=== PATIENT | female | born 1990 | race Caucasian/White ===

== ENCOUNTER 2018-10-27 13:42 | Emergency (ER) | payer OTHER ==
[2018-10-27] MEDS ORDERED: Sodium Chloride 0.9% 1,000 ML IV ONE (14:13)
[2018-10-27 14:25] VITALS: O2SAT 100
[2018-10-27 14:55] LABS: BASO % 0.1 % (0.0-2.0); EOS # 0.8 K/uL (0.0-0.7); EOS % 4.9 % (0.0-4.0); HEMOGLOBIN 14.7 g/dL (11.0-16.0); LYMPH # 2.4 K/uL (1.0-4.3); LYMPH % 14.4 % (20.0-40.0); MEAN CORPUSCULAR HEMOGLOBIN 30.4 pg (27.0-31.0); MEAN CORPUSCULAR HGB CONC 33.8 g/dL (33.0-37.0); MEAN PLATELET VOLUME 9.8 fL (7.2-11.7); MONO # 1.2 K/uL (0.0-0.8); MONO % 7.3 % (0.0-10.0); NEUT # 12.2 K/uL (1.8-7.0); NEUT % 73.3 % (50.0-75.0); RBC 4.84 Mil/uL (3.80-5.20); RED CELL DISTRIBUTION WIDTH 13.1 % (11.5-14.5); WHITE BLOOD COUNT 16.6 K/uL (4.8-10.8)
[2018-10-27 14:57] LABS: HCG,QUALITATIVE URINE POSITIVE (NEGATIVE)
[2018-10-27 15:02] LABS: SQUAMOUS EPITHIAL 10 /hpf (0-5); URINE AMORPHOUS SEDIMENT RARE /ul (<OCC); URINE BACTERIA RARE (<OCC); URINE BILIRUBIN NEGATIVE (NEGATIVE); URINE BLOOD TRACE (NEGATIVE); URINE CALCIUM OXALATE CRYSTALS FEW /hpf (<OCC); URINE CLARITY Hazy (Clear); URINE COLOR Yellow (YELLOW); URINE GLUCOSE (UA) NORMAL (Normal); URINE LEUKOCYTE ESTERASE 1+ Leu/uL (Negative); URINE PROTEIN NEGATIVE (NEGATIVE)
[2018-10-27 15:15] LABS: ALB/GLOB RATIO 1.5 (1.0-2.1); ALBUMIN 4.6 g/dL (3.5-5.0); ALT/SGPT 36 U/L (9-52); AST/SGOT 25 U/L (14-36); BLOOD UREA NITROGEN 8 mg/dL (7-17); CALCIUM 9.7 mg/dl (8.6-10.4); GFR NON-AFRICAN AMERICAN > 60
[2018-10-27] MEDS ORDERED: Dextrose 5%/0.45% NS 1,000 ML IV SCH (15:45)
[2018-10-27] MEDS ORDERED: Dextrose 5%/0.45% NS 1,000 ML IV ONE (16:03)
--- NOTE | 2018-10-27 17:13 | C.PDOC ---
History Of Present Illness 27-year-old female, who is 6+ weeks , presents to the ED for evaluation of abdominal cramping. Patient reports epigastric abdominal pain associated with nausea and episodes of vomiting. Patient states she follows with PHYSICIAN/OPHTHALMOLOGIST doctor Sunny and states that she has already undergone an ultrasound with her. Patient denies vaginal bleeding, headache, fever, chills, and dysuria at this time. Time Seen by Provider: 10/27/18 14:12 Chief Complaint (Nursing): GI Problem History Per: Patient History/Exam Limitations: no limitations Current Symptoms Are (Timing): Still Present Quality Of Discomfort: "Pain" Associated Symptoms: Nausea, Vomiting Past Medical History Reviewed: Historical Data, Nursing Documentation, Vital Signs Vital Signs: Last Vital Signs Temp 98.5 F 10/27/18 14:08 Pulse 91 H 10/27/18 14:08 Resp 16 10/27/18 14:08 BP 117/80 10/27/18 14:08 Pulse Ox 100 10/27/18 14:08 - Medical History PMH: No Chronic Diseases Surgical History: No Surg Hx Family History: States: Unknown Family Hx - Social History Hx Alcohol Use: No Hx Substance Use: No Review Of Systems Constitutional: Negative for: Fever, Chills Gastrointestinal: Positive for: Nausea, Vomiting, Abdominal Pain (epigastric ) Genitourinary: Negative for: Vaginal Bleeding Neurological: Negative for: Headache Physical Exam - Physical Exam Appears: Non-toxic, No Acute Distress, Other (slightly ill-appearing ) Skin: Normal Color, Warm, Dry Head: Atraumatic, Normacephalic Eye(s): bilateral: Normal Inspection Oral Mucosa: Dry (slight) Neck: Supple Chest: Symmetrical, No Deformity, No Tenderness Cardiovascular: Rhythm Regular, No Murmur Respiratory: Normal Breath Sounds, No Rales, No Rhonchi, No Wheezing Gastrointestinal/Abdominal: Soft, No Tenderness, No Guarding, No Rebound Pelvic: Other (mild pelvic discomfort ) Extremity: Normal ROM, Capillary Refill (less than 2 seconds ) Neurological/Psych: Oriented x3, Normal Speech, Normal Cognition ED Course And Treatment - Laboratory Results Result Diagrams: 10/27/18 14:51 10/27/18 14:51 Lab Results: Total Bilirubin 1.1 mg/dL (0.2-1.3) 10/27/18 14:51 AST 25 U/L (14-36) 10/27/18 14:51 ALT 36 U/L (9-52) 10/27/18 14:51 Alkaline Phosphatase 61 U/L (38-126) 10/27/18 14:51 Total Protein 7.7 g/dL (6.3-8.3) 10/27/18 14:51 Albumin 4.6 g/dL (3.5-5.0) 10/27/18 14:51 Globulin 3.0 gm/dL (2.2-3.9) 10/27/18 14:51 Albumin/Globulin Ratio 1.5 (1.0-2.1) 10/27/18 14:51 Urine Color Yellow (YELLOW) 10/27/18 14:51 Urine Clarity Hazy (Clear) 10/27/18 14:51 Urine pH 6.0 (5.0-8.0) 10/27/18 14:51 Ur Specific [place] 1.018 (1.003-1.030) 10/27/18 14:51 Urine Protein Negative mg/dL (NEGATIVE) 10/27/18 14:51 Urine Glucose (UA) Normal mg/dL (Normal) 10/27/18 14:51 Urine Ketones 2+ mg/dL (NEGATIVE) H 10/27/18 14:51 Urine Blood Trace (NEGATIVE) 10/27/18 14:51 Urine Nitrate Negative (NEGATIVE) 10/27/18 14:51 Urine Bilirubin Negative (NEGATIVE) 10/27/18 14:51 Urine Urobilinogen 4.0 mg/dL (0.2-1.0) H 10/27/18 14:51 Ur Leukocyte Esterase 1+ Ever/uL (Negative) H 10/27/18 14:51 Urine WBC (Auto) 8 /hpf (0-5) H 10/27/18 14:51 Urine RBC (Auto) 12 /hpf (0-3) H 10/27/18 14:51 Ur Squamous Epith Cells 10 /hpf (0-5) H 10/27/18 14:51 Calcium Oxalate Crystal Few /hpf (<OCC) H 10/27/18 14:51 Amorphous Sediment Rare /ul (<OCC) H 10/27/18 14:51 Urine Bacteria Rare (<OCC) 10/27/18 14:51 Urine HCG, Qual Positive (NEGATIVE) 10/27/18 14:51 Beta HCG, Quant 94769.00 mIU/ML 10/27/18 14:51 Urine HCG, Qual Positive (NEGATIVE) 10/27/18 14:51 O2 Sat by Pulse Oximetry: 100 (on RA ) Pulse Ox Interpretation: Normal Medical Decision Making Medical Decision Making: Progress: Bloodwork and UA ordered and reviewed. Dextrose IV and IV Fluids given. Case discussed withDr. Correa, who recommends zofran. Zofran IV given. On reassessment, patient is resting comfortably, showing no signs of distress and is tolerating PO barb sandra. Patient is stable for discharge. She is advised to follow up with Dr. Correa within 1-2 days for further evaluation. Disposition - Disposition Referrals: Lukas Correa MD [Staff Provider] - Disposition: HOME/ ROUTINE Disposition Time: 17:13 Condition: STABLE Prescriptions: Ondansetron ODT [Zofran ODT] 4 mg PO TID PRN #24 odt PRN Reason: Nausea/Vomiting Instructions: Hyperemesis Gravidarum Forms: General Discharge Instructions, [facility] (Maltese) - Clinical Impression Clinical Impression: Hyperemesis gravidarum - Scribe Statement The provider has reviewed the documentation as recorded by the Scribe (Mayra Shannon) Provider Attestation: All medical record entries made by the Scribe were at my direction and personally dictated by me. I have reviewed the chart and agree that the record accurately reflects my personal performance of the history, physical exam, medical decision making, and the department course for this patient. I have also personally directed, reviewed, and agree with the discharge instructions and disposition.
--- NOTE | 2018-10-27 17:17 | C.PDOC ---
Time Seen by Provider: 10/27/18 14:12 Chief Complaint (Nursing): GI Problem Past Medical History Vital Signs: Last Vital Signs Temp 98.5 F 10/27/18 14:08 Pulse 91 H 10/27/18 14:08 Resp 16 10/27/18 14:08 BP 117/80 10/27/18 14:08 Pulse Ox 100 10/27/18 14:08 - Social History Hx Alcohol Use: No Hx Substance Use: No ED Course And Treatment - Laboratory Results Result Diagrams: 10/27/18 14:51 10/27/18 14:51 Lab Results: Total Bilirubin 1.1 mg/dL (0.2-1.3) 10/27/18 14:51 AST 25 U/L (14-36) 10/27/18 14:51 ALT 36 U/L (9-52) 10/27/18 14:51 Alkaline Phosphatase 61 U/L (38-126) 10/27/18 14:51 Total Protein 7.7 g/dL (6.3-8.3) 10/27/18 14:51 Albumin 4.6 g/dL (3.5-5.0) 10/27/18 14:51 Globulin 3.0 gm/dL (2.2-3.9) 10/27/18 14:51 Albumin/Globulin Ratio 1.5 (1.0-2.1) 10/27/18 14:51 Urine Color Yellow (YELLOW) 10/27/18 14:51 Urine Clarity Hazy (Clear) 10/27/18 14:51 Urine pH 6.0 (5.0-8.0) 10/27/18 14:51 Ur Specific [place] 1.018 (1.003-1.030) 10/27/18 14:51 Urine Protein Negative mg/dL (NEGATIVE) 10/27/18 14:51 Urine Glucose (UA) Normal mg/dL (Normal) 10/27/18 14:51 Urine Ketones 2+ mg/dL (NEGATIVE) H 10/27/18 14:51 Urine Blood Trace (NEGATIVE) 10/27/18 14:51 Urine Nitrate Negative (NEGATIVE) 10/27/18 14:51 Urine Bilirubin Negative (NEGATIVE) 10/27/18 14:51 Urine Urobilinogen 4.0 mg/dL (0.2-1.0) H 10/27/18 14:51 Ur Leukocyte Esterase 1+ Ever/uL (Negative) H 10/27/18 14:51 Urine WBC (Auto) 8 /hpf (0-5) H 10/27/18 14:51 Urine RBC (Auto) 12 /hpf (0-3) H 10/27/18 14:51 Ur Squamous Epith Cells 10 /hpf (0-5) H 10/27/18 14:51 Calcium Oxalate Crystal Few /hpf (<OCC) H 10/27/18 14:51 Amorphous Sediment Rare /ul (<OCC) H 10/27/18 14:51 Urine Bacteria Rare (<OCC) 10/27/18 14:51 Urine HCG, Qual Positive (NEGATIVE) 10/27/18 14:51 Beta HCG, Quant 20684.00 mIU/ML 10/27/18 14:51 Urine HCG, Qual Positive (NEGATIVE) 10/27/18 14:51 O2 Sat by Pulse Oximetry: 100 Disposition - Disposition Referrals: Lukas Correa MD [Staff Provider] - Disposition: HOME/ ROUTINE Disposition Time: 17:13 Condition: STABLE Prescriptions: Ondansetron ODT [Zofran ODT] 4 mg PO TID PRN #24 odt PRN Reason: Nausea/Vomiting Instructions: Hyperemesis Gravidarum Forms: [facility] (Yi), General Discharge Instructions - POA Present On Arrival: None - Clinical Impression Clinical Impression: Hyperemesis gravidarum
[2018-10-27 17:21] VITALS: BP 102/67; PULSE 82; RESP 20; TEMP 97.8
== END 2018-10-27 17:37 | disposition home or self-care (01) ==
LOC: C.ER 13:42
DX: O21.0 Mild hyperemesis gravidarum (principal); Z3A.01 Less than 8 weeks gestation of pregnancy
CPT/HCPCS: 80053; 81001; 84702; 84703; 85025; 96361; 96374; 99285; J2405; J7030; J7042

== ENCOUNTER 2018-10-27 21:06 | Observation (INO) | payer OTHER ==
[2018-10-27] MEDS ORDERED: Sodium Chloride 0.9% 1,000 ML IV ONE (22:07)
--- NOTE | 2018-10-27 22:31 | C.PDOC ---
History Of Present Illness 27 year old female returns to the emergency department after being evaluated earlier today for similar symptoms of hyperemesis gravidarum (G1, P0). During previous ED visit patient was treated with Zofran and IV Fluids, improving her condition and allowing her to tolerate PO fluids. Patient states that she went home and ate rice with shah, and took the Zofran ODT that she was prescribed but was still voiting and having the same crampy abdominal pain. Patient denies vaginal bleeding, fever, chills, or urinary complaints. Time Seen by Provider: 10/27/18 21:49 Chief Complaint (Nursing): Abdominal Pain History Per: Patient History/Exam Limitations: no limitations Onset/Duration Of Symptoms: Hrs Current Symptoms Are (Timing): Still Present Location Of Pain/Discomfort: Other (abdomen) Radiation Of Pain To:: None Quality Of Discomfort: Cramping, "Pain" Associated Symptoms: Vomiting. denies: Fever, Chills, Nausea, Urinary Symptoms : 1 Para: 0 Past Medical History Reviewed: Historical Data, Nursing Documentation, Vital Signs Vital Signs: Last Vital Signs Temp 98.4 F 10/27/18 21:31 Pulse 92 H 10/27/18 21:31 Resp 20 10/27/18 21:31 BP 117/78 10/27/18 21:31 Pulse Ox 98 10/27/18 21:31 - Medical History PMH: No Chronic Diseases Surgical History: No Surg Hx Family History: States: No Known Family Hx - Social History Hx Alcohol Use: No Hx Substance Use: No Review Of Systems Except As Marked, All Systems Reviewed And Found Negative. Constitutional: Negative for: Fever, Chills Cardiovascular: Negative for: Chest Pain Respiratory: Negative for: Cough, Shortness of Breath Gastrointestinal: Positive for: Vomiting, Abdominal Pain. Negative for: Nausea, Diarrhea Genitourinary: Negative for: Dysuria, Frequency, Incontinence Physical Exam - Physical Exam Appears: Non-toxic, No Acute Distress Skin: Normal Color, Warm, Dry Head: Atraumatic, Normacephalic Eye(s): bilateral: Normal Inspection, PERRL, EOMI Nose: Normal Oral Mucosa: Dry Neck: Normal, Supple Chest: Symmetrical, No Tenderness Cardiovascular: Rhythm Regular (tachycardic), No Murmur Respiratory: Normal Breath Sounds, No Rales, No Rhonchi, No Wheezing Gastrointestinal/Abdominal: Bowel Sounds (normal), Soft, Tenderness (diffuse) Back: Normal Inspection, No CVA Tenderness Extremity: Normal ROM Neurological/Psych: Oriented x3, Normal Speech, Normal Cognition ED Course And Treatment - Laboratory Results Result Diagrams: 10/27/18 22:54 10/27/18 22:54 O2 Sat by Pulse Oximetry: 98 (RA) Pulse Ox Interpretation: Normal Medical Decision Making Medical Decision Making: Plan: CMP Lipase CBC NaCl IV Fluids Urinalysis 00:[address] Correa regarding the patient, she stated to admit to OB on- call. 00:15 spoke to OB on-call Dr. Gonzalez who stated that she will admit and put in orders under Dr. Correa, as the patient is a private patient of Dr. Correa's. Disposition - Disposition Forms: [facility] (Frisian) - Scribe Statement The provider has reviewed the documentation as recorded by the Scribe (Kieran Wu) Provider Attestation: All medical record entries made by the Scribe were at my direction and personally dictated by me. I have reviewed the chart and agree that the record accurately reflects my personal performance of the history, physical exam, medical decision making, and the department course for this patient. I have also personally directed, reviewed, and agree with the discharge instructions and disposition.
[2018-10-27 23:00] LABS: BASO # 0.2 K/uL (0.0-0.2); BASO % 1.4 % (0.0-2.0); EOS # 0.9 K/uL (0.0-0.7); EOS % 5.7 % (0.0-4.0); HEMOGLOBIN 13.4 g/dL (11.0-16.0); LYMPH % 12.7 % (20.0-40.0); MEAN CELL VOLUME 90.8 fL (81.0-99.0); MEAN CORPUSCULAR HEMOGLOBIN 30.4 pg (27.0-31.0); MEAN CORPUSCULAR HGB CONC 33.5 g/dL (33.0-37.0); MEAN PLATELET VOLUME 10.2 fL (7.2-11.7); MONO # 1.3 K/uL (0.0-0.8); MONO % 8.2 % (0.0-10.0); NEUT # 11.4 K/uL (1.8-7.0); RBC 4.42 Mil/uL (3.80-5.20); RED CELL DISTRIBUTION WIDTH 13.4 % (11.5-14.5); WHITE BLOOD COUNT 15.9 K/uL (4.8-10.8)
[2018-10-27 23:22] LABS: ALB/GLOB RATIO 1.5 (1.0-2.1); ALT/SGPT 31 U/L (9-52); AST/SGOT 18 U/L (14-36); BLOOD UREA NITROGEN 5 mg/dL (7-17); CALCIUM 8.9 mg/dl (8.6-10.4); GFR NON-AFRICAN AMERICAN > 60; LIPASE 160 U/L (23-300)
[2018-10-27 23:55] LABS: SQUAMOUS EPITHIAL 18 /hpf (0-5); URINE BACTERIA OCC (<OCC); URINE BILIRUBIN NEGATIVE (NEGATIVE); URINE BLOOD NEGATIVE (NEGATIVE); URINE CLARITY Hazy (Clear); URINE COLOR Yellow (YELLOW); URINE GLUCOSE (UA) NORMAL (Normal); URINE LEUKOCYTE ESTERASE 2+ Leu/uL (Negative); URINE PROTEIN NEGATIVE (NEGATIVE)
[2018-10-28] MEDS ORDERED: Dextrose 5%/Lactated Ringer's 1,000 ML IV SCH (01:15)
[2018-10-28] MEDS ORDERED: Lactated Ringer's 1,000 ML IV SCH (03:45)
[2018-10-28 07:34] LABS: BASO % 0.3 % (0.0-2.0); EOS % 7.8 % (0.0-4.0); HEMOGLOBIN 12.8 g/dL (11.0-16.0); LYMPH # 3.1 K/uL (1.0-4.3); LYMPH % 24.8 % (20.0-40.0); MEAN CELL VOLUME 90.1 fL (81.0-99.0); MEAN CORPUSCULAR HEMOGLOBIN 30.6 pg (27.0-31.0); MEAN PLATELET VOLUME 9.8 fL (7.2-11.7); MONO % 7.9 % (0.0-10.0); NEUT # 7.4 K/uL (1.8-7.0); NEUT % 59.2 % (50.0-75.0); NRBC % 0.1 % (0.0-2.0); RBC 4.18 Mil/uL (3.80-5.20); RED CELL DISTRIBUTION WIDTH 13.2 % (11.5-14.5); WHITE BLOOD COUNT 12.5 K/uL (4.8-10.8)
[2018-10-28 08:31] LABS: ALB/GLOB RATIO 1.4 (1.0-2.1); ALBUMIN 3.4 g/dL (3.5-5.0); ALT/SGPT 22 U/L (9-52); AMYLASE 38 U/L (30-110); AST/SGOT 15 U/L (14-36); BILIRUBIN,DIRECT 0.1 mg/dL (0.0-0.4); BLOOD UREA NITROGEN 3 mg/dL (7-17); CALCIUM 8.5 mg/dl (8.6-10.4); GFR NON-AFRICAN AMERICAN > 60; LIPASE 66 U/L (23-300)
--- NOTE | 2018-10-28 15:47 | CP.PCM.CON ---
Past Patient History - Past Medical History & Family History Past Medical History?: No - Past Social History Smoking Status: Never Smoked - MUSCULOSKELETAL/RHEUMATOLOGICAL Hx Falls: No - PSYCHIATRIC Hx Substance Use: No - SURGICAL HISTORY Hx Surgeries: No - ANESTHESIA Hx Anesthesia: No Meds Allergies/Adverse Reactions: Allergies Allergy/AdvReac Type Severity Reaction Status Date / Time No Known Allergies Allergy Verified 10/28/18 02:27 - Medications Medications: Current Medications Dextrose/Lactated Ringer's (Dextrose 5%/Lactated Ringer's) 1,000 mls @ 40 mls/hr IV .Q24H [facility] Last Admin: 10/28/18 02:18 Dose: 40 mls/hr Lactated Ringer's (Lactated Ringer's) 1,000 mls @ 125 mls/hr IV .Q8H [facility] Metoclopramide HCl (Reglan) 10 mg IVP BID [facility] Last Admin: 10/28/18 09:25 Dose: 10 mg Ondansetron HCl (Zofran Inj) 4 mg IVP Q6 PRN PRN Reason: Nausea/Vomiting Results - Vital Signs Recent Vital Signs: Last Vital Signs Temp 98.5 F 10/28/18 08:00 Pulse 75 10/28/18 08:00 Resp 18 10/28/18 08:00 BP 109/75 10/28/18 08:00 Pulse Ox 100 10/28/18 08:00 - Labs Result Diagrams: 10/28/18 07:22 10/28/18 07:22 Labs: Laboratory Results - last 24 hr 10/27/18 10/27/18 10/27/18 22:54 22:54 23:41 WBC 15.9 H RBC 4.42 Hgb 13.4 Hct 40.2 MCV 90.8 MCH 30.4 MCHC 33.5 RDW 13.4 Plt Count 251 MPV 10.2 Neut % (Auto) 72.0 Lymph % (Auto) 12.[address] [place] % (Auto) 8.2 Eos % (Auto) 5.7 H Baso % (Auto) 1.4 Neut # (Auto) 11.4 H Lymph # (Auto) 2.0 [place] # (Auto) 1.3 H Eos # (Auto) 0.9 H Baso # (Auto) 0.2 Sodium 135 Potassium 3.5 L Chloride 101 Carbon Dioxide 26 Anion Gap 12 BUN 5 L Creatinine 0.5 L Est GFR ( Amer) > 60 Est GFR (Non-Af Amer) > 60 Random Glucose 78 Calcium 8.9 Total Bilirubin 1.0 Direct Bilirubin AST 18 ALT 31 Alkaline Phosphatase 56 Total Protein 6.6 Albumin 4.0 Globulin 2.6 Albumin/Globulin Ratio 1.5 Amylase Lipase 160 Beta HCG, Quant Urine Color Yellow Urine Clarity Hazy Urine pH 7.0 Ur Specific [place] 1.005 Urine Protein Negative Urine Glucose (UA) Normal Urine Ketones 1+ H Urine Blood Negative Urine Nitrate Negative Urine Bilirubin Negative Urine Urobilinogen 2.0 H Ur Leukocyte Esterase 2+ H Urine WBC (Auto) 10 H Urine RBC (Auto) 2 Ur Squamous Epith Cells 18 H Urine Bacteria Occ H 10/28/18 10/28/18 10/28/18 07:22 07:22 14:00 WBC 12.5 H RBC 4.18 Hgb 12.8 Hct 37.6 MCV 90.1 MCH 30.6 MCHC 34.0 RDW 13.2 Plt Count 236 MPV 9.8 Neut % (Auto) 59.2 Lymph % (Auto) 24.8 [place] % (Auto) 7.9 Eos % (Auto) 7.8 H Baso % (Auto) 0.3 Neut # (Auto) 7.4 H Lymph # (Auto) 3.1 [place] # (Auto) 1.0 H Eos # (Auto) 1.0 H Baso # (Auto) 0.0 Sodium 134 Potassium 3.2 L Chloride 103 Carbon Dioxide 27 Anion Gap 8 L BUN 3 L Creatinine 0.5 L Est GFR ( Amer) > 60 Est GFR (Non-Af Amer) > 60 Random Glucose 108 H D Calcium 8.5 L Total Bilirubin 1.2 Direct Bilirubin 0.1 AST 15 ALT 22 Alkaline Phosphatase 49 Total Protein 5.7 L Albumin 3.4 L Globulin 2.3 Albumin/Globulin Ratio 1.4 Amylase 38 Lipase 66 Beta HCG, Quant 58405.00 Urine Color Urine Clarity Urine pH Ur Specific [place] Urine Protein Urine Glucose (UA) Urine Ketones Urine Blood Urine Nitrate Urine Bilirubin Urine Urobilinogen Ur Leukocyte Esterase Urine WBC (Auto) Urine RBC (Auto) Ur Squamous Epith Cells Urine Bacteria
--- NOTE | 2018-10-28 15:51 | CP.PCM.HP ---
History of Present Illness - History of Present Illness History of Present Illness: Pt presented in the ER in the early hours of the morning of 10/27 with c/o of intractable N&V and stated that she was about 6 weeks . Apparently she received IV Hydration, Zofran, Reglan and was discharge home with instructions and Rx. Pt returned to ER at about 6-7 PM on the same day and this time with intractable abdominal, epigastric and back pain which is gotten worse since. N&V was controlled with the medications. She is a private patient of Dr. Correa so she was contacted and requested the patient to be admitted to her service and to have the [facility] Hospitalist to see the patient and admit her. Dr. Car contacted me re this patient and I stated the same, please admit the patient to Dr. Correa and have the nurses call me for orders. Dr. Correa was called a couple of times at home and she gave orders last PM and I saw the patient this AM. Pt states now that her N&V is controlled on present meds, Zofran and Reglan but what really bothers her now is her abdominal, back and epigastric pain. Upon further questioning she states that for many years she had suffered from increase "stomach acidity" and felt that since her mother suffers from the same issue, did not see a doctor about it so never seek medical care for it. Pt is a 27 yo female with an LMP of 09/05/17 and apparently about 7.4 weeks , although she states that she is about 6 weeks . No OB related complaints except for Hyperemesis. Present on Admission - Present on Admission Any Indicators Present on Admission: No History of DVT/PE: No History of Uncontrolled Diabetes: No Urinary Catheter: No Decubitus Ulcer Present: No History Surgical Site Infection Following: None Review of Systems - Review of Systems All systems: reviewed and no additional remarkable complaints except - Constitutional Constitutional: As Per HPI - EENT Eyes: As Per HPI Ears: As Per HPI Nose/Mouth/Throat: As Per HPI - Breasts Breasts: As Per HPI - Cardiovascular Cardiovascular: As Per HPI - Respiratory Respiratory: As Per HPI - Gastrointestinal Gastrointestinal: Abdominal Pain, Bloating, Heartburn, Nausea - Genitourinary Genitourinary: As Per HPI - Reproductive: Female Reproductive:Female: Amenorrhea, Cycle Variable (LMP 09/05/2018 and states that she is about 6 weeks ), Menses 1-7 Days - Musculoskeletal Musculoskeletal: As Per HPI - Integumentary Integumentary: As Per HPI - Neurological Neurological: As Per HPI - Psychiatric Psychiatric: As Per HPI - Endocrine Endocrine: As Per HPI - Hematologic/Lymphatic Hematologic: As Per HPI Past Patient History - Past Medical History & Family History Past Medical History?: Yes Past Family History: Reviewed and not pertinent - Past Social History Smoking Status: Never Smoked (s stated on HPI only) Chewing Tobacco Use: No Cigar Use: No Alcohol: None Drugs: Denies Home Situation {Lives}: Other Domestic Violence: Negative - MUSCULOSKELETAL/RHEUMATOLOGICAL Hx Falls: No - PSYCHIATRIC Hx Substance Use: No - SURGICAL HISTORY Hx Surgeries: No - ANESTHESIA Hx Anesthesia: No Meds Allergies/Adverse Reactions: Allergies Allergy/AdvReac Type Severity Reaction Status Date / Time No Known Allergies Allergy Verified 10/28/18 02:27 Physical Exam - Constitutional Appears: In Acute Distress - Head Exam Head Exam: NORMAL INSPECTION - ENT Exam ENT Exam: Mucous Membranes Moist - Respiratory Exam Respiratory Exam: NORMAL BREATHING PATTERN - Cardiovascular Exam Cardiovascular Exam: REGULAR RHYTHM - GI/Abdominal Exam GI & Abdominal Exam: Distended, Normal Bowel Sounds, Tenderness - Rectal Exam Rectal Exam: NORMAL INSPECTION - Exam External exam: NORMAL EXTERNAL EXAM - Extremities Exam Extremities exam: Positive for: normal inspection - Back Exam Back exam: NORMAL INSPECTION, paraspinal tenderness - Neurological Exam Neurological exam: Alert, Altered, Oriented x3 - Psychiatric Exam Psychiatric exam: Normal Affect Results - Vital Signs Recent Vital Signs: Last Vital Signs Temp 98.5 F 10/28/18 08:00 Pulse 75 10/28/18 08:00 Resp 18 10/28/18 08:00 BP 109/75 10/28/18 08:00 Pulse Ox 100 10/28/18 08:00 - Labs Result Diagrams: 10/28/18 07:22 10/28/18 07:22 Labs: Laboratory Results - last 24 hr 10/27/18 10/27/18 10/27/18 22:54 22:54 23:41 WBC 15.9 H RBC 4.42 Hgb 13.4 Hct 40.2 MCV 90.8 MCH 30.4 MCHC 33.5 RDW 13.4 Plt Count 251 MPV 10.2 Neut % (Auto) 72.0 Lymph % (Auto) 12.7 L [place] % (Auto) 8.2 Eos % (Auto) 5.7 H Baso % (Auto) 1.4 Neut # (Auto) 11.4 H Lymph # (Auto) 2.0 [place] # (Auto) 1.3 H Eos # (Auto) 0.9 H Baso # (Auto) 0.2 Sodium 135 Potassium 3.5 L Chloride 101 Carbon Dioxide 26 Anion Gap 12 BUN 5 L Creatinine 0.5 L Est GFR ( Amer) > 60 Est GFR (Non-Af Amer) > 60 Random Glucose 78 Calcium 8.9 Total Bilirubin 1.0 Direct Bilirubin AST 18 ALT 31 Alkaline Phosphatase 56 Total Protein 6.6 Albumin 4.0 Globulin 2.6 Albumin/Globulin Ratio 1.5 Amylase Lipase 160 Beta HCG, Quant Urine Color Yellow Urine Clarity Hazy Urine pH 7.0 Ur Specific [place] 1.005 Urine Protein Negative Urine Glucose (UA) Normal Urine Ketones 1+ H Urine Blood Negative Urine Nitrate Negative Urine Bilirubin Negative Urine Urobilinogen 2.0 H Ur Leukocyte Esterase 2+ H Urine WBC (Auto) 10 H Urine RBC (Auto) 2 Ur Squamous Epith Cells 18 H Urine Bacteria Occ H 10/28/18 10/28/18 10/28/18 07:22 07:22 14:00 WBC 12.5 H RBC 4.18 Hgb 12.8 Hct 37.6 MCV 90.1 MCH 30.6 MCHC 34.0 RDW 13.2 Plt Count 236 MPV 9.8 Neut % (Auto) 59.2 Lymph % (Auto) 24.8 [place] % (Auto) 7.9 Eos % (Auto) 7.8 H Baso % (Auto) 0.3 Neut # (Auto) 7.4 H Lymph # (Auto) 3.1 [place] # (Auto) 1.0 H Eos # (Auto) 1.0 H Baso # (Auto) 0.0 Sodium 134 Potassium 3.2 L Chloride 103 Carbon Dioxide 27 Anion Gap 8 L BUN 3 L Creatinine 0.5 L Est GFR ( Amer) > 60 Est GFR (Non-Af Amer) > 60 Random Glucose 108 H D Calcium 8.5 L Total Bilirubin 1.2 Direct Bilirubin 0.1 AST 15 ALT 22 Alkaline Phosphatase 49 Total Protein 5.7 L Albumin 3.4 L Globulin 2.3 Albumin/Globulin Ratio 1.4 Amylase 38 Lipase 66 Beta HCG, Quant 31279.00 Urine Color Urine Clarity Urine pH Ur Specific [place] Urine Protein Urine Glucose (UA) Urine Ketones Urine Blood Urine Nitrate Urine Bilirubin Urine Urobilinogen Ur Leukocyte Esterase Urine WBC (Auto) Urine RBC (Auto) Ur Squamous Epith Cells Urine Bacteria Assessment & Plan - Assessment and Plan (Free Text) Assessment: Assesment and Plan 27 yo female with IUP at about 7.3 weeks per LMP Hyperemesis, controlled with medications and tolerated clear liquids well Severe abdominal, epigastric and back pain Hx of increase gas and acidity ie, Gastritis? Discussed with Dr. Correa and recommended 1. Abdominal and pelvic US 2. Verify and GA/ Quantitative BHCG ordered 3. Consult GI and / Cassandra python django developer and consulted 4. Continue present medications - Date & Time Date: 10/28/18 Time: 16:12
--- NOTE | 2018-10-28 17:21 | US ---
Date of service: 10/28/2018 HISTORY: Severe Epigastric and Abdominal pain COMPARISON: None. TECHNIQUE: Sonographic evaluation of the right upper quadrant of the abdomen. FINDINGS: LIVER: Measures 11.0 cm in length. Normal echogenicity of the liver parenchyma. No mass. No intrahepatic bile duct dilatation. GALLBLADDER: Cholelithiasis and sludge. No mural thickening. No pericholecystic fluid. Negative sonographic Bueno sign. COMMON BILE DUCT: Measures 9 mm. This is abnormally dilated. There is no evidence of choledocholithiasis. PANCREAS: Unremarkable as visualized. No mass. No ductal dilatation. RIGHT KIDNEY: Measures 9.0 cm in length. Normal echogenicity. No calculus, mass, or hydronephrosis. AORTA: Unremarkable IVC: Unremarkable. OTHER FINDINGS: None . IMPRESSION: Cholelithiasis. No evidence of cholecystitis. Mildly dilated common bile duct of uncertain etiology. No additional abnormality peer
--- NOTE | 2018-10-28 17:23 | US ---
Date of service: 10/28/2018 PROCEDURE: OB Pelvic Ultrasound HISTORY: Verify 6 weeks IUP 09/05/2018 COMPARISON: None available. FINDINGS: UTERUS: Gestational sac: Gestational sac diameter 12 mm equivalent to 5 weeks 2 days. [place]-rump length 4 mm equivalent to 6 weeks 0 days Heart rate: 115 bpm. age (Ultrasound estimated): 5 weeks 5 days [place]-gestational hemorrhage: None. Date of delivery (Ultrasound estimated) : 06/25/2019 Uterus measures 9.7 x 5.1 x 5.7 cm. Normal in size and appearance. CERVIX: Measures 3.2 cm. Long and closed. No cervical abnormality seen. RIGHT OVARY: Measures 3.3 x 3.0 x 2.9 cm. No mass lesion. Normal flow. Simple physiologic cyst, 1.7 x 2.1 x 2.1 cm. LEFT OVARY: Measures 3.0 x 2.1 x 2.6 cm. No solid mass. Normal flow. FREE FLUID: None. OTHER FINDINGS: None. IMPRESSION: Single live intrauterine gestation of approximately 5 weeks 5 days gestational age. heart rate 115. No subchorionic hemorrhage. Cervix closed.
--- NOTE | 2018-10-28 19:31 | CP.PCM.CON ---
History of Present Illness - History of Present Illness History of Present Illness: This is a 27 year old woman, LMP 09/05/17, with nausea, vomiting, abdominal pain. Patient states that she developed nausea, vomiting, and intermittent abdominal pain approximately 10 days ago. The pain is located in the upper abdomen in a band-like distribution, described as cramping, lasting 30 minutes at a time, and was initially mild. In the past three or four days, the pain has become more intense. The pain worsens after eating. She also complains of heartburn but has no difficulty swallowing. Her appetite is good, but she has lost 9 pounds in the past two weeks. She had not had a bowel movement in the three days prior to admission. She denies having rectal bleeding. Sonogram of the abdomen 10/28/28 showed cholelithiasis and sludge in the GB and a dilated common duct measuring 9 mm. The pelvic ultrasound shed a live intrauterine gestation approximately 5 weeks 5 days. Liver enzymes, amylase, lipase were all normal. Review of Systems - Review of Systems All systems: reviewed and no additional remarkable complaints except - Constitutional Constitutional: Weight Loss. absent: Chills, Fever - Cardiovascular Cardiovascular: absent: Chest Pain - Respiratory Respiratory: absent: Cough, Dyspnea - Gastrointestinal Gastrointestinal: Abdominal Pain, Constipation, Heartburn, Nausea, Vomiting. absent: Diarrhea, Dysphagia, Hematochezia - Genitourinary Genitourinary: absent: Dysuria, Urinary Incontinence, Urinary Frequency Past Patient History - Past Medical History & Family History Past Medical History?: Yes Past Family History: Reviewed and not pertinent - Past Social History Smoking Status: Never Smoked (s stated on HPI only) Chewing Tobacco Use: No Cigar Use: No Alcohol: None Drugs: Denies Home Situation {Lives}: Other Domestic Violence: Negative - MUSCULOSKELETAL/RHEUMATOLOGICAL Hx Falls: No - PSYCHIATRIC Hx Substance Use: No - SURGICAL HISTORY Hx Surgeries: No - ANESTHESIA Hx Anesthesia: No Meds Allergies/Adverse Reactions: Allergies Allergy/AdvReac Type Severity Reaction Status Date / Time No Known Allergies Allergy Verified 10/28/18 02:27 - Medications Medications: Current Medications Dextrose/Lactated Ringer's (Dextrose 5%/Lactated Ringer's) 1,000 mls @ 40 mls/hr IV .Q24H [facility] Last Admin: 10/28/18 02:18 Dose: 40 mls/hr Lactated Ringer's (Lactated Ringer's) 1,000 mls @ 125 mls/hr IV .Q8H [facility] Metoclopramide HCl (Reglan) 10 mg IVP BID [facility] Last Admin: 10/28/18 17:10 Dose: 10 mg Ondansetron HCl (Zofran Inj) 4 mg IVP Q6 PRN PRN Reason: Nausea/Vomiting Physical Exam - Constitutional Appears: No Acute Distress - Head Exam Head Exam: ATRAUMATIC, NORMOCEPHALIC - Neck Exam Neck exam: Negative for: Lymphadenopathy, Thyromegaly - Respiratory Exam Respiratory Exam: NORMAL BREATHING PATTERN. absent: Rales, Rhonchi, Wheezes - Cardiovascular Exam Cardiovascular Exam: REGULAR RHYTHM, +S1, +S2. absent: Gallop, Rubs, Systolic Murmur - GI/Abdominal Exam GI & Abdominal Exam: Normal Bowel Sounds, Soft. absent: Mass, Organomegaly, Tenderness - Rectal Exam Rectal Exam: Deferred - Extremities Exam Extremities exam: Negative for: calf tenderness, pedal edema Results - Vital Signs Recent Vital Signs: Last Vital Signs Temp 99.4 F 10/28/18 15:40 Pulse 85 10/28/18 15:40 Resp 18 10/28/18 15:40 BP 115/76 10/28/18 15:40 Pulse Ox 100 10/28/18 15:40 - Labs Result Diagrams: 10/28/18 07:22 10/28/18 07:22 Labs: Laboratory Results - last 24 hr 10/27/18 10/27/18 10/27/18 22:54 22:54 23:41 WBC 15.9 H RBC 4.42 Hgb 13.4 Hct 40.2 MCV 90.8 MCH 30.4 MCHC 33.5 RDW 13.4 Plt Count 251 MPV 10.2 Neut % (Auto) 72.0 Lymph % (Auto) 12.7 L [place] % (Auto) 8.2 Eos % (Auto) 5.7 H Baso % (Auto) 1.4 Neut # (Auto) 11.4 H Lymph # (Auto) 2.0 [place] # (Auto) 1.3 H Eos # (Auto) 0.9 H Baso # (Auto) 0.2 Sodium 135 Potassium 3.5 L Chloride 101 Carbon Dioxide 26 Anion Gap 12 BUN 5 L Creatinine 0.5 L Est GFR ( Amer) > 60 Est GFR (Non-Af Amer) > 60 Random Glucose 78 Calcium 8.9 Total Bilirubin 1.0 Direct Bilirubin AST 18 ALT 31 Alkaline Phosphatase 56 Total Protein 6.6 Albumin 4.0 Globulin 2.6 Albumin/Globulin Ratio 1.5 Amylase Lipase 160 Beta HCG, Quant Urine Color Yellow Urine Clarity Hazy Urine pH 7.0 Ur Specific [place] 1.005 Urine Protein Negative Urine Glucose (UA) Normal Urine Ketones 1+ H Urine Blood Negative Urine Nitrate Negative Urine Bilirubin Negative Urine Urobilinogen 2.0 H Ur Leukocyte Esterase 2+ H Urine WBC (Auto) 10 H Urine RBC (Auto) 2 Ur Squamous Epith Cells 18 H Urine Bacteria Occ H 10/28/18 10/28/18 10/28/18 07:22 07:22 14:00 WBC 12.5 H RBC 4.18 Hgb 12.8 Hct 37.6 MCV 90.1 MCH 30.6 MCHC 34.0 RDW 13.2 Plt Count 236 MPV 9.8 Neut % (Auto) 59.2 Lymph % (Auto) 24.8 [place] % (Auto) 7.9 Eos % (Auto) 7.8 H Baso % (Auto) 0.3 Neut # (Auto) 7.4 H Lymph # (Auto) 3.1 [place] # (Auto) 1.0 H Eos # (Auto) 1.0 H Baso # (Auto) 0.0 Sodium 134 Potassium 3.2 L Chloride 103 Carbon Dioxide 27 Anion Gap 8 L BUN 3 L Creatinine 0.5 L Est GFR ( Amer) > 60 Est GFR (Non-Af Amer) > 60 Random Glucose 108 H D Calcium 8.5 L Total Bilirubin 1.2 Direct Bilirubin 0.1 AST 15 ALT 22 Alkaline Phosphatase 49 Total Protein 5.7 L Albumin 3.4 L Globulin 2.3 Albumin/Globulin Ratio 1.4 Amylase 38 Lipase 66 Beta HCG, Quant 75440.00 Urine Color Urine Clarity Urine pH Ur Specific [place] Urine Protein Urine Glucose (UA) Urine Ketones Urine Blood Urine Nitrate Urine Bilirubin Urine Urobilinogen Ur Leukocyte Esterase Urine WBC (Auto) Urine RBC (Auto) Ur Squamous Epith Cells Urine Bacteria Assessment & Plan (1) Abdominal pain complicating , antepartum Assessment and Plan: Patient has upper abdominal pain for the past 10 days. Although the LFTs are normal, sonogram showed dilatation of the common duct to 9 mm as well as stones and sludge in the GB. Will follow liver enzymes and request surgery consultation. Status: Acute
--- NOTE | 2018-10-28 20:58 | CP.PCM.CON ---
History of Present Illness - History of Present Illness History of Present Illness: General Surgery Consult Note for Dr. Blake Reason for consult: cholelithiasis, Cbd 9 mm 27 F who is currently ~6 weeks verified by US presents to [facility] for complaint of abdominal pain and nausea/vomiting. Patient was seen and evaluated on the 4 tower. Patient states that pain has been intermittently present for about 2 weeks. She reports that pain has been getting progressively worse especially over the last day. Yesterday, patient states pain was unbearable and had episodes of nausea/vomiting with NBNB emesis. She rates pain as severe and describes it as constant, dull and cramping located in the epigastrium. Eating/drinking/movement aggravates symptoms while nothing specifically alleviates them. Denies recent illness or sick contacts. ABUS revealed cholelithiasis, Cbd 9 mm without evidence of choledolcholithiasis (see full report). GI was consulted, Dr. Trujillo. Patient denies fever/chills, cp, SOB, diarrhea, constipation, incontinence, urinary symptoms. PMH: denies PSH: denies ALL: NKDA Social: denies tobacco/EtOH/illicit drug use, LMP about 6 weeks ago Review of Systems - Review of Systems All systems: reviewed and no additional remarkable complaints except (as per HPI) Past Patient History - Past Medical History & Family History Past Medical History?: Yes Past Family History: Reviewed and not pertinent - Past Social History Smoking Status: Never Smoked (s stated on HPI only) Chewing Tobacco Use: No Cigar Use: No Alcohol: None Drugs: Denies Home Situation {Lives}: Other Domestic Violence: Negative - MUSCULOSKELETAL/RHEUMATOLOGICAL Hx Falls: No - PSYCHIATRIC Hx Substance Use: No - SURGICAL HISTORY Hx Surgeries: No - ANESTHESIA Hx Anesthesia: No Meds Allergies/Adverse Reactions: Allergies Allergy/AdvReac Type Severity Reaction Status Date / Time No Known Allergies Allergy Verified 10/28/18 02:27 - Medications Medications: Current Medications Dextrose/Lactated Ringer's (Dextrose 5%/Lactated Ringer's) 1,000 mls @ 40 mls/hr IV .Q24H [facility] Last Admin: 10/28/18 02:18 Dose: 40 mls/hr Lactated Ringer's (Lactated Ringer's) 1,000 mls @ 125 mls/hr IV .Q8H [facility] Metoclopramide HCl (Reglan) 10 mg IVP BID [facility] Last Admin: 10/28/18 17:10 Dose: 10 mg Ondansetron HCl (Zofran Inj) 4 mg IVP Q6 PRN PRN Reason: Nausea/Vomiting Physical Exam - Constitutional Appears: Non-toxic, No Acute Distress - Head Exam Head Exam: ATRAUMATIC, NORMOCEPHALIC - Eye Exam Eye Exam: EOMI, Normal appearance Pupil Exam: PERRL - ENT Exam ENT Exam: Mucous Membranes Moist - Neck Exam Neck exam: Positive for: Full Rom - Respiratory Exam Respiratory Exam: NORMAL BREATHING PATTERN - Cardiovascular Exam Cardiovascular Exam: REGULAR RHYTHM - GI/Abdominal Exam GI & Abdominal Exam: Normal Bowel Sounds, Soft, Tenderness (epigastrium/RUQ). absent: Distended, Firm, Guarding, Hernia, Rebound, Rigid - Extremities Exam Extremities exam: Positive for: normal capillary refill, pedal pulses present. Negative for: calf tenderness - Back Exam Back exam: absent: CVA tenderness (L), CVA tenderness (R) - Neurological Exam Neurological exam: Alert, CN II-XII Intact, Oriented x3 - Psychiatric Exam Psychiatric exam: Normal Affect, Normal Mood - Skin Skin Exam: Dry, Intact, Normal Color, Warm Results - Vital Signs Recent Vital Signs: Last Vital Signs Temp 99.4 F 10/28/18 15:40 Pulse 85 10/28/18 15:40 Resp 18 10/28/18 15:40 BP 115/76 10/28/18 15:40 Pulse Ox 100 10/28/18 15:40 - Labs Result Diagrams: 10/29/18 08:44 10/28/18 07:22 Labs: Laboratory Results - last 24 hr 10/27/18 10/27/18 10/27/18 22:54 22:54 23:41 WBC 15.9 H RBC 4.42 Hgb 13.4 Hct 40.2 MCV 90.8 MCH 30.4 MCHC 33.5 RDW 13.4 Plt Count 251 MPV 10.2 Neut % (Auto) 72.0 Lymph % (Auto) 12.7 L [place] % (Auto) 8.2 Eos % (Auto) 5.7 H Baso % (Auto) 1.4 Neut # (Auto) 11.4 H Lymph # (Auto) 2.0 [place] # (Auto) 1.3 H Eos # (Auto) 0.9 H Baso # (Auto) 0.2 Sodium 135 Potassium 3.5 L Chloride 101 Carbon Dioxide 26 Anion Gap 12 BUN 5 L Creatinine 0.5 L Est GFR ( Amer) > 60 Est GFR (Non-Af Amer) > 60 Random Glucose 78 Calcium 8.9 Total Bilirubin 1.0 Direct Bilirubin AST 18 ALT 31 Alkaline Phosphatase 56 Total Protein 6.6 Albumin 4.0 Globulin 2.6 Albumin/Globulin Ratio 1.5 Amylase Lipase 160 Beta HCG, Quant Urine Color Yellow Urine Clarity Hazy Urine pH 7.0 Ur Specific [place] 1.005 Urine Protein Negative Urine Glucose (UA) Normal Urine Ketones 1+ H Urine Blood Negative Urine Nitrate Negative Urine Bilirubin Negative Urine Urobilinogen 2.0 H Ur Leukocyte Esterase 2+ H Urine WBC (Auto) 10 H Urine RBC (Auto) 2 Ur Squamous Epith Cells 18 H Urine Bacteria Occ H 10/28/18 10/28/18 10/28/18 07:22 07:22 14:00 WBC 12.5 H RBC 4.18 Hgb 12.8 Hct 37.6 MCV 90.1 MCH 30.6 MCHC 34.0 RDW 13.2 Plt Count 236 MPV 9.8 Neut % (Auto) 59.2 Lymph % (Auto) 24.8 [place] % (Auto) 7.9 Eos % (Auto) 7.8 H Baso % (Auto) 0.3 Neut # (Auto) 7.4 H Lymph # (Auto) 3.1 [place] # (Auto) 1.0 H Eos # (Auto) 1.0 H Baso # (Auto) 0.0 Sodium 134 Potassium 3.2 L Chloride 103 Carbon Dioxide 27 Anion Gap 8 L BUN 3 L Creatinine 0.5 L Est GFR ( Amer) > 60 Est GFR (Non-Af Amer) > 60 Random Glucose 108 H D Calcium 8.5 L Total Bilirubin 1.2 Direct Bilirubin 0.1 AST 15 ALT 22 Alkaline Phosphatase 49 Total Protein 5.7 L Albumin 3.4 L Globulin 2.3 Albumin/Globulin Ratio 1.4 Amylase 38 Lipase 66 Beta HCG, Quant 33451.00 Urine Color Urine Clarity Urine pH Ur Specific [place] Urine Protein Urine Glucose (UA) Urine Ketones Urine Blood Urine Nitrate Urine Bilirubin Urine Urobilinogen Ur Leukocyte Esterase Urine WBC (Auto) Urine RBC (Auto) Ur Squamous Epith Cells Urine Bacteria Assessment & Plan - Assessment and Plan (Free Text) Assessment: 27 F who is 6 weeks confirmed by US presents with abdominal pain and nausea/vomiting Plan: -ABUS: cholelithiasis, Cbd 9 mm without evidence of choledolcholithiasis -CLD -Pain control -Anti-emetics PRN -IVF -f/u GI recommendations -MRCP -Further recommendations as per Dr. Lou Durham PGY2 - Date & Time Date: 10/29/18 Time: 00:04
[2018-10-29 08:17] VITALS: RESP 18
[2018-10-29 08:50] LABS: BASO % 0.3 % (0.0-2.0); EOS # 0.9 K/uL (0.0-0.7); EOS % 7.4 % (0.0-4.0); HEMOGLOBIN 13.4 g/dL (11.0-16.0); LYMPH # 2.7 K/uL (1.0-4.3); MEAN CELL VOLUME 90.4 fL (81.0-99.0); MEAN CORPUSCULAR HEMOGLOBIN 30.9 pg (27.0-31.0); MEAN CORPUSCULAR HGB CONC 34.1 g/dL (33.0-37.0); MEAN PLATELET VOLUME 10.1 fL (7.2-11.7); MONO # 0.8 K/uL (0.0-0.8); MONO % 6.9 % (0.0-10.0); NEUT # 7.3 K/uL (1.8-7.0); NEUT % 62.4 % (50.0-75.0); RBC 4.35 Mil/uL (3.80-5.20); RED CELL DISTRIBUTION WIDTH 13.3 % (11.5-14.5); WHITE BLOOD COUNT 11.6 K/uL (4.8-10.8)
[2018-10-29 09:08] LABS: ALB/GLOB RATIO 1.6 (1.0-2.1); ALT/SGPT 21 U/L (9-52); AMYLASE 42 U/L (30-110); AST/SGOT 15 U/L (14-36); BLOOD UREA NITROGEN 3 mg/dL (7-17); CALCIUM 9.5 mg/dl (8.6-10.4); GFR NON-AFRICAN AMERICAN > 60; LIPASE 81 U/L (23-300)
--- NOTE | 2018-10-29 10:15 | CP.PCM.PN ---
Subjective - Date & Time of Evaluation Date of Evaluation: 10/29/18 Time of Evaluation: 10:13 - Subjective Subjective: Patient reports having pain for most of the night, relieved by suppositiory. She denies having nausea and vomiting. she has not had a bowel movement since yesterday. Objective - Vital Signs/Intake and Output Vital Signs (last 24 hours): Temp Pulse Resp BP Pulse Ox 98.2 F 74 18 116/73 100 10/29/18 08:00 10/29/18 08:00 10/29/18 08:00 10/29/18 08:00 10/29/18 08:00 - Medications Medications: Current Medications Lactated Ringer's (Lactated Ringer's) 1,000 mls @ 125 mls/hr IV .Q8H [facility] Metoclopramide HCl (Reglan) 10 mg IVP Q8H PRN Last Admin: 10/29/18 01:09 Dose: 10 mg Morphine Sulfate (Morphine) 2 mg IVP Q4 PRN PRN Reason: Pain, severe (8-10) Ondansetron HCl (Zofran Inj) 4 mg IVP Q6 PRN PRN Reason: Nausea/Vomiting - Labs Labs: 10/29/18 08:44 10/29/18 08:44 - Constitutional Appears: In Acute Distress - Head Exam Head Exam: ATRAUMATIC, NORMOCEPHALIC - Eye Exam Eye Exam: EOMI, PERRL - Neck Exam Neck Exam: absent: Lymphadenopathy, Thyromegaly - Respiratory Exam Respiratory Exam: NORMAL BREATHING PATTERN. absent: Rales, Rhonchi, Wheezes - Cardiovascular Exam Cardiovascular Exam: REGULAR RHYTHM, +S1, +S2. absent: Gallop, Rubs, Murmur - GI/Abdominal Exam GI & Abdominal Exam: Soft, Normal Bowel Sounds. absent: Tenderness, Mass, Organomegaly - Rectal Exam Rectal Exam: Deferred - Extremities Exam Extremities Exam: absent: Calf Tenderness, Pedal Edema Assessment and Plan (1) Abdominal pain complicating , antepartum Assessment & Plan: Patient had recurrent pain last night, thought she is pain-free at present. She has not had further nausea or vomiting. Liver enzymes were again normal this morning. Will follow LFTs. Consider cholecystectomy when appropriate. Status: Acute
--- NOTE | 2018-10-30 09:33 | CP.PCM.PN ---
Subjective - Date & Time of Evaluation Date of Evaluation: 10/30/18 Time of Evaluation: 07:30 - Subjective Subjective: Gynecological progress note ( Dr. Correa's service) Patient was seen and examined at bedside with her present. Patient states that she is doing well and with some symptomatic relief and controlled nausea with anti-emetic. Patient still admits to mild to moderate abdominal discomfort. Patient is able to tolerate some diet and ambulating without any difficulties. Patient is with good pain control with suppository tylenol. Nedra ent denies any symptoms of fever, chills, chest pain, palpitations, shortness of breath, diarrhea. Objective - Vital Signs/Intake and Output Vital Signs (last 24 hours): Temp Pulse Resp BP Pulse Ox 98 F 82 18 113/79 99 10/30/18 08:00 10/30/18 08:00 10/30/18 08:00 10/30/18 08:00 10/30/18 08:00 - Medications Medications: Current Medications Lactated Ringer's (Lactated Ringer's) 1,000 mls @ 125 mls/hr IV .Q8H [facility] Metoclopramide HCl (Reglan) 10 mg IVP Q8H PRN Last Admin: 10/29/18 01:09 Dose: 10 mg Morphine Sulfate (Morphine) 2 mg IVP Q4 PRN PRN Reason: Pain, severe (8-10) Ondansetron HCl (Zofran Inj) 4 mg IVP Q6 PRN PRN Reason: Nausea/Vomiting - Labs Labs: 10/29/18 08:44 10/29/18 08:44 - Constitutional Appears: Well, No Acute Distress - Head Exam Head Exam: ATRAUMATIC, NORMAL INSPECTION - Eye Exam Eye Exam: EOMI - ENT Exam ENT Exam: Mucous Membranes Moist - Respiratory Exam Respiratory Exam: Clear to Ausculation Bilateral, NORMAL BREATHING PATTERN. absent: Decreased Breath Sounds, Prolonged Expiratory Phase, Rhonchi, Wheezes - Cardiovascular Exam Cardiovascular Exam: REGULAR RHYTHM, +S1, +S2. absent: Tachycardia, Murmur - GI/Abdominal Exam GI & Abdominal Exam: Soft, Normal Bowel Sounds. absent: Distended, Firm, Guarding, Rigid Additional comments: Gravid at 7.6 weeks - Extremities Exam Extremities Exam: Normal Inspection. absent: Calf Tenderness, Pedal Edema - Back Exam Back Exam: NORMAL INSPECTION - Neurological Exam Neurological Exam: Alert, Awake, Normal Gait, Oriented x3 - Psychiatric Exam Psychiatric exam: Normal Affect, Normal Mood Assessment and Plan (1) Cholelithiasis affecting in first trimester, antepartum Assessment & Plan: Patient is a 27 year old at approximately 7.6 weeks who presented with epigastric abdominal pain and intractable nausea/vomiting, US shows cholithiasis with CBD dilation to 9mm - Control nausea and vomiting with Reglan and Zofran PRN - Tylenol suppository for pain control - Surgical consult, Dr. Blake * Recommendation for MRCP, f/u MRCP - GI consultation, Dr. Trujillo: * Recommedation for surgical consult and to continue monitor LFTs Will follow up surgical recommendation All plans and management discussed with Dr. Sunny Benjamin DO, PGY2 Status: Acute
--- NOTE | 2018-10-30 10:38 | CP.PCM.PN ---
Subjective - Date & Time of Evaluation Date of Evaluation: 10/30/18 Time of Evaluation: 10:35 - Subjective Subjective: Patient denies having nausea and vomiting. She has abdominal pain, mild, overnight which improved after taking a suppository. Objective - Vital Signs/Intake and Output Vital Signs (last 24 hours): Temp Pulse Resp BP Pulse Ox 98 F 82 18 113/79 99 10/30/18 08:00 10/30/18 08:00 10/30/18 08:00 10/30/18 08:00 10/30/18 08:00 - Medications Medications: Current Medications Lactated Ringer's (Lactated Ringer's) 1,000 mls @ 125 mls/hr IV .Q8H [facility] Metoclopramide HCl (Reglan) 10 mg IVP Q8H PRN Last Admin: 10/29/18 01:09 Dose: 10 mg Morphine Sulfate (Morphine) 2 mg IVP Q4 PRN PRN Reason: Pain, severe (8-10) Ondansetron HCl (Zofran Inj) 4 mg IVP Q6 PRN PRN Reason: Nausea/Vomiting - Labs Labs: 10/29/18 08:44 10/29/18 08:44 - Constitutional Appears: No Acute Distress - Head Exam Head Exam: ATRAUMATIC, NORMOCEPHALIC - Neck Exam Neck Exam: absent: Lymphadenopathy, Thyromegaly - Respiratory Exam Respiratory Exam: NORMAL BREATHING PATTERN. absent: Rales, Rhonchi, Wheezes - Cardiovascular Exam Cardiovascular Exam: REGULAR RHYTHM, +S1, +S2. absent: Rubs, Murmur - GI/Abdominal Exam GI & Abdominal Exam: Soft, Normal Bowel Sounds. absent: Tenderness, Mass, Organomegaly - Rectal Exam Rectal Exam: Deferred - Extremities Exam Extremities Exam: absent: Calf Tenderness, Pedal Edema Assessment and Plan (1) Abdominal pain complicating , antepartum Assessment & Plan: Abominal pain recurred overnight, but was less severe than previously. Will check MRCP which has already been ordered. Status: Acute
--- NOTE | 2018-10-30 10:46 | CP.PCM.PN ---
Subjective - Date & Time of Evaluation Date of Evaluation: 10/30/18 Time of Evaluation: 10:44 - Subjective Subjective: General Surgery - Dr. Blake PT [facility] MICHELLE. Pt complains of RUQ abdominal pain, slightly improved. She denies any n/V at this time. NO fevers/chils, sob/chest pain. Objective - Vital Signs/Intake and Output Vital Signs (last 24 hours): Temp Pulse Resp BP Pulse Ox 98 F 82 18 113/79 99 10/30/18 08:00 10/30/18 08:00 10/30/18 08:00 10/30/18 08:00 10/30/18 08:00 - Medications Medications: Current Medications Lactated Ringer's (Lactated Ringer's) 1,000 mls @ 125 mls/hr IV .Q8H [facility] Metoclopramide HCl (Reglan) 10 mg IVP Q8H PRN Last Admin: 10/29/18 01:09 Dose: 10 mg Morphine Sulfate (Morphine) 2 mg IVP Q4 PRN PRN Reason: Pain, severe (8-10) Ondansetron HCl (Zofran Inj) 4 mg IVP Q6 PRN PRN Reason: Nausea/Vomiting - Labs Labs: 10/29/18 08:44 10/29/18 08:44 - Constitutional Appears: No Acute Distress - Head Exam Head Exam: ATRAUMATIC, NORMAL INSPECTION, NORMOCEPHALIC - Respiratory Exam Respiratory Exam: NORMAL BREATHING PATTERN. absent: Respiratory Distress - Cardiovascular Exam Cardiovascular Exam: REGULAR RHYTHM - GI/Abdominal Exam GI & Abdominal Exam: Soft, Tenderness (mild ttp ruq). absent: Distended, Firm, Guarding, Rigid, Rebound - Neurological Exam Neurological Exam: Alert, Oriented x3 - Psychiatric Exam Psychiatric exam: Normal Affect, Normal Mood - Skin Skin Exam: Dry, Intact Assessment and Plan - Assessment and Plan (Free Text) Assessment: 27 F who is 6 weeks confirmed by US presents with abdominal pain and nausea/vomiting Plan: -ABUS: cholelithiasis, Cbd 9 mm without evidence of choledolcholithiasis -CLD, IVF -Pain control -Anti-emetics PRN -f/u GI -F/U MRCP DW Dr Lou Lindsey PGY4
--- NOTE | 2018-10-30 14:25 | MRI ---
MRCP Indication: cbd 9mm, cholelithiasis, abd pain, 6 weeks . Technique: Multiplanar, multisequence MR images of the abdomen were obtained, including heavily T2 weighted MRCP images of the biliary system. Rotating maximum intensity projection images of the biliary system were generated. A total of 422 images were submitted for review. consent form signed by patient and in the patient's chart. Comparison: CT abdomen pelvis with contrast performed 09/24/18 Findings: The liver appears grossly unremarkable on this noncontrast examination. Cholelithiasis. There is no intrahepatic biliary ductal dilatation. The common bile duct appears measures approximately 6 mm in caliber and tapers distally. The pancreatic duct appears within normal limits of caliber. No filling defects are seen in the common bile duct or pancreatic duct. The limited imaged noncontrast adrenal glands, kidneys, spleen, and pancreas appear unremarkable. No bulky abdominal lymphadenopathy is seen. No ascites. Limited views demonstrate 17 mm T2 hyperintensity at the right adnexa, presumably ovarian cyst. No acute osseous abnormality is detected. Impression: No filling defects seen within the common bile duct which appears within normal limits of caliber. Cholelithiasis. Additional findings as above.
[2018-10-30 14:30] LABS: BASO % 0.2 % (0.0-2.0); EOS # 0.8 K/uL (0.0-0.7); EOS % 7.9 % (0.0-4.0); HEMOGLOBIN 13.8 g/dL (11.0-16.0); LYMPH # 2.2 K/uL (1.0-4.3); LYMPH % 21.3 % (20.0-40.0); MEAN CELL VOLUME 90.1 fL (81.0-99.0); MEAN CORPUSCULAR HGB CONC 34.4 g/dL (33.0-37.0); MEAN PLATELET VOLUME 10.3 fL (7.2-11.7); MONO # 0.7 K/uL (0.0-0.8); NEUT # 6.5 K/uL (1.8-7.0); NEUT % 63.6 % (50.0-75.0); RBC 4.45 Mil/uL (3.80-5.20); RED CELL DISTRIBUTION WIDTH 13.3 % (11.5-14.5); WHITE BLOOD COUNT 10.3 K/uL (4.8-10.8)
[2018-10-30 14:45] LABS: ALB/GLOB RATIO 1.6 (1.0-2.1); ALBUMIN 4.1 g/dL (3.5-5.0); ALT/SGPT 15 U/L (9-52); AST/SGOT 20 U/L (14-36); BLOOD UREA NITROGEN 5 mg/dL (7-17); CALCIUM 9.5 mg/dl (8.6-10.4); GFR NON-AFRICAN AMERICAN > 60
[2018-10-30] MEDS ORDERED: Influenza Vaccine 60 mcg/0.5 mL SYR (4YR UP) IM ONE (15:00)
[2018-10-30 16:36] VITALS: BP 108/75; PULSE 96; TEMP 97; O2SAT 98
== END 2018-10-30 16:35 | disposition home or self-care (01) ==
LOC: C.ER 21:06 → C.4M 10-28 00:23
PROVIDERS: ADMIT Obstetrics & Gynecology; ATTEND Obstetrics & Gynecology
DX: K80.20 Calculus of gallbladder without cholecystitis without obstruction (principal); O26.611 Liver and biliary tract disorders in pregnancy, first trimester; O21.0 Mild hyperemesis gravidarum; Z3A.01 Less than 8 weeks gestation of pregnancy
CPT/HCPCS: 36415; 74181; 76705; 76770; 76805; 76817; 80053; 81001; 82150; 82248; 83690; 83735; 84100; 84702; 85025; 96360; 99283; G0378; J2765; J3480; J7030; J7120

== ENCOUNTER 2018-11-09 15:41 | Inpatient (IN) | payer OTHER ==
[2018-11-09] MEDS ORDERED: Sodium Chloride 0.9% 1,000 ML IV ONE (16:15)
[2018-11-09] MEDS ORDERED: Dextrose 5%/0.45% NS 1,000 ML IV SCH (16:30)
--- NOTE | 2018-11-09 16:33 | C.PDOC ---
History Of Present Illness Patient is a 27 year old 8 week female, who presents to the ED for the 3rd time for hyperemesis gravidarum. Patient was previously seen in the ED on 10/27 and returned on 10/28 of this year where she was diagnosed with gallstones, but no gallbladder disease. Patient reports that she was okay the last few days after discharge, but now she is back to being unable to keep down any liquids and reports feeling weak with abdominal cramping. She also states that she has had decreased output in urine and has been very nauseous. Patient's OBGYN is and this is her first . She denies any vaginal bleeding, fever, chills, headache, dysuria, or other urinary symptoms. Time Seen by Provider: 11/09/18 16:09 Chief Complaint (Nursing): Abdominal Pain History Per: Patient History/Exam Limitations: no limitations Onset/Duration Of Symptoms: Days Current Symptoms Are (Timing): Still Present Associated Symptoms: Nausea, Vomiting. denies: Fever, Chills, Urinary Symptoms Recent travel outside of the [place]: No Additional History Per: Patient Abnormal Vaginal Bleeding: No Past Medical History Reviewed: Historical Data, Nursing Documentation, Vital Signs Vital Signs: Last Vital Signs Temp 98.1 F 11/09/18 15:51 Pulse 96 H 11/09/18 15:51 Resp 15 11/09/18 15:51 BP 112/83 11/09/18 15:51 Pulse Ox 98 11/09/18 15:51 - Medical History PMH: No Chronic Diseases, Gall Bladder Disease Surgical History: No Surg Hx Family History: States: Unknown Family Hx - Social History Hx Alcohol Use: No Hx Substance Use: No Review Of Systems Constitutional: Negative for: Fever, Chills Gastrointestinal: Positive for: Nausea, Vomiting, Abdominal Pain (cramping) Genitourinary: Negative for: Dysuria, Hematuria, Vaginal Bleeding Neurological: Negative for: Headache Physical Exam - Physical Exam Appears: Non-toxic, No Acute Distress, Other (vital signs stable, afebrile ) Skin: Normal Color, Warm, Dry, No Rash Head: Atraumatic, Normacephalic Oral Mucosa: Moist Neck: Normal ROM, Supple Chest: Symmetrical, No Deformity Cardiovascular: Rhythm Regular, No Murmur Respiratory: Normal Breath Sounds, No Rales, No Rhonchi, No Wheezing Gastrointestinal/Abdominal: Soft, No Tenderness Neurological/Psych: Oriented x3, Normal Speech, Normal Cognition ED Course And Treatment - Laboratory Results Result Diagrams: 11/09/18 16:32 11/09/18 16:32 O2 Sat by Pulse Oximetry: 98 (on RA) Pulse Ox Interpretation: Normal Medical Decision Making Medical Decision Making: Plan: Labs IV Fluids Zofran 4mg IVP Dextrose 1000ml IV Spoke to who recommended patient come in for observation under OB Hospitalist. Discussed with Dr. Landon. Disposition Discussed With : Lukas Correa Doctor Will See Patient In The: Hospital Counseled Patient/Family Regarding: Studies Performed, Diagnosis - Disposition Disposition: HOSPITALIZED Disposition Time: 18:11 Condition: GUARDED Forms: [employer] (Malagasy) - Clinical Impression Clinical Impression: Hyperemesis - Scribe Statement The provider has reviewed the documentation as recorded by the Scribchristian Al All medical record entries made by the Scribe were at my direction and personally dictated by me. I have reviewed the chart and agree that the record accurately reflects my personal performance of the history, physical exam, medical decision making, and the department course for this patient. I have also personally directed, reviewed, and agree with the discharge instructions and disposition. Decision To Admit - Pt Status Changed To: Hospital Disposition Of: Observation - . Bed Request Type: [employer]LL[employer] Admitting Physician: Trina A Dipesh Patient Diagnosis: Hyperemesis
[2018-11-09 16:40] LABS: BASO % 0.3 % (0.0-2.0); EOS # 0.7 K/uL (0.0-0.7); EOS % 5.2 % (0.0-4.0); HEMOGLOBIN 14.3 g/dL (11.0-16.0); LYMPH # 3.3 K/uL (1.0-4.3); LYMPH % 25.2 % (20.0-40.0); MEAN CORPUSCULAR HEMOGLOBIN 30.2 pg (27.0-31.0); MEAN CORPUSCULAR HGB CONC 32.8 g/dL (33.0-37.0); MEAN PLATELET VOLUME 10.6 fL (7.2-11.7); MONO % 7.3 % (0.0-10.0); NEUT # 8.1 K/uL (1.8-7.0); NRBC % 0.1 % (0.0-2.0); RBC 4.73 Mil/uL (3.80-5.20); RED CELL DISTRIBUTION WIDTH 12.8 % (11.5-14.5)
[2018-11-09] MEDS ORDERED: Dextrose 5%-0.225% NS 1,000 ML IV ONE (16:40)
[2018-11-09] MEDS ORDERED: Sodium Chloride 0.9% 1,000 ML ONE (16:40)
[2018-11-09 16:41] LABS: MEAN CELL VOLUME 92.1 fL (81.0-99.0)
[2018-11-09 17:00] LABS: ALB/GLOB RATIO 1.7 (1.0-2.1); ALBUMIN 4.3 g/dL (3.5-5.0); ALT/SGPT 96 U/L (9-52); AST/SGOT 78 U/L (14-36); BLOOD UREA NITROGEN 4 mg/dL (7-17); CALCIUM 9.4 mg/dl (8.6-10.4); GFR NON-AFRICAN AMERICAN > 60
[2018-11-09 19:50] LABS: AMYLASE 64 U/L (30-110); LIPASE 68 U/L (23-300)
--- NOTE | 2018-11-09 22:38 | CP.PCM.HP ---
History of Present Illness - History of Present Illness History of Present Illness: This is a private patient of Dr. Lukas Correa; admitted under the Ob Hospitalist service This is the second admission for this 27 y.o. , LMP 09/05/18, RODOLFO 06/13/19, EGA 8w 6d, admitted for supportive therapy in light of refractory nausea and vomiting resulting in generalized weakness, and occasional dizziness; intermittent palpitations over the past "several days"; associated with an inability to keep down any food, "and now, not even water". Reports decreasing volume of urine ..."I've even felt too weak to get to the bathroom". Patient denies any loss of consciousness. Admits to mid-sternal pain with some radiation along midline to level of umbilicus, this prior to presenting to E.D. today. No vaginal bleeding or passage of fluid per vagina. Currently patient denies any abdominal pain; reports now only nausea. Has had no vomiting since in E.D. Has voided three times since presenting to E.D. HPI: admitted 10/27 - 10/28 for similar complaints with incidental finding of cholelithiasis and dilated common bile duct at 9 mm. Patient responded to supportive therapy and was discharged home on zofran, reglan and tylenol - to be taken in various combinations. No surgical intervention was entertained at that time; same being deferred until after the first trimester, if possible. Patient states did well for the first 3 days at home. Starting 11/01, or 11/02 and progressively since then, increasing frequency of nausea and vomiting to the point of not being able to keep down anything. Patient reports attempts to eat food, only to bring it back up from 5 minutes and usually not more than 20 minutes after. Describes vomitus as either partially digested food ("when I can eat) to "yellowish fluid" ("when I'm not able to eat anything"). Denies any blood in vomitus. Patient was seen by private Ob 11/07/18 - was advised to take her medications "on schedule" versus "as needed", as she had been doing for nausea. Patient reports when she did this, "it only made me feel worse (re: abdominal pain). So I stopped taking all the medications" leading to her presenting to E.D. today. 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 Father alive 48 -?HTN Present on Admission - Present on Admission Any Indicators Present on Admission: No Review of Systems - Review of Systems All systems: reviewed and no additional remarkable complaints except - Constitutional Constitutional: As Per HPI - Gastrointestinal Gastrointestinal: As Per HPI Past Patient History - Infectious Disease Hx of Infectious Diseases: None - Past Medical History & Family History Past Medical History?: Yes Pertinent Family History: HTN - Past Social History Smoking Status: Never Smoked Chewing Tobacco Use: No Cigar Use: No Alcohol: None Drugs: Denies Home Situation {Lives}: With Family - CARDIAC Hx Cardiac Disorders: No - PULMONARY Hx Respiratory Disorders: No - NEUROLOGICAL Hx Neurological Disorder: No - HEENT Hx HEENT Problems: No - RENAL Hx Chronic Kidney Disease: No - ENDOCRINE/METABOLIC Hx Endocrine Disorders: No - HEMATOLOGICAL/ONCOLOGICAL Hx Blood Disorders: No - INTEGUMENTARY Hx Dermatological Problems: No - MUSCULOSKELETAL/RHEUMATOLOGICAL Hx Falls: No - GASTROINTESTINAL Hx Gall Bladder Disease: Yes - GENITOURINARY/GYNECOLOGICAL Hx Genitourinary Disorders: No LMP:: 09/05/18 : 1 Para: 0 Termination of : 0 - PSYCHIATRIC Hx Psychophysiologic Disorder: No Hx Substance Use: No - SURGICAL HISTORY Hx Surgeries: No - ANESTHESIA Hx Anesthesia: No Meds Allergies/Adverse Reactions: Allergies Allergy/AdvReac Type Severity Reaction Status Date / Time No Known Allergies Allergy Verified 11/09/18 15:51 Physical Exam - Constitutional Appears: No Acute Distress Additional comments: Appears weak, and sleepy - Head Exam Head Exam: NORMAL INSPECTION - Eye Exam Eye Exam: Normal appearance - ENT Exam ENT Exam: Mucous Membranes Dry - Neck Exam Neck exam: Positive for: Full Rom - Respiratory Exam Respiratory Exam: NORMAL BREATHING PATTERN - Cardiovascular Exam Cardiovascular Exam: REGULAR RHYTHM - GI/Abdominal Exam GI & Abdominal Exam: Normal Bowel Sounds, Soft - Rectal Exam Rectal Exam: Deferred - Exam Additional comments: deferred - Extremities Exam Extremities exam: Positive for: normal inspection - Neurological Exam Neurological exam: Alert, Oriented x3 - Psychiatric Exam Psychiatric exam: Normal Affect, Normal Mood - Skin Skin Exam: Dry, Intact, Normal Color, Warm Results - Vital Signs Recent Vital Signs: Last Vital Signs Temp 97.7 F 11/09/18 18:51 Pulse 90 11/09/18 18:51 Resp 15 11/09/18 15:51 BP 93/61 L 11/09/18 18:51 Pulse Ox 100 11/09/18 18:51 - Labs Result Diagrams: 11/09/18 16:32 11/09/18 16:32 Labs: Laboratory Results - last 24 hr 11/09/18 11/09/18 11/09/18 16:32 16:32 19:27 WBC 13.0 H RBC 4.73 Hgb 14.3 Hct 43.6 MCV 92.1 D MCH 30.2 MCHC 32.8 L RDW 12.8 Plt Count 222 MPV 10.6 Neut % (Auto) 62.0 Lymph % (Auto) 25.2 [place] % (Auto) 7.3 Eos % (Auto) 5.2 H Baso % (Auto) 0.3 Neut # (Auto) 8.1 H Lymph # (Auto) 3.3 [place] # (Auto) 1.0 H Eos # (Auto) 0.7 Baso # (Auto) 0.0 Sodium 133 Potassium 4.2 Chloride 101 Carbon Dioxide 22 Anion Gap 14 BUN 4 L Creatinine 0.4 L Est GFR ( Amer) > 60 Est GFR (Non-Af Amer) > 60 Random Glucose 82 D Calcium 9.4 Total Bilirubin 1.1 AST 78 H D ALT 96 H D Alkaline Phosphatase 52 Total Protein 6.9 Albumin 4.3 Globulin 2.6 Albumin/Globulin Ratio 1.7 Amylase 64 Lipase 68 Beta HCG, Quant 401315.00 B-Hydroxybutyrate 0.65 H Assessment & Plan - Assessment and Plan (Free Text) Assessment: Previous admission notes, labs and imaging reports reviewed; as well as today's studies 27 y.o. , 8w 6d, refractory nausea and vomiting, with 5 Kg (11 lbs) weight loss, ketonemia c/w hyperemesis gravidarum, recently diagnosed cholelithiasis and dilated common bile duct admitted for supportive therapy. Afebrile; vital signs stable. Currently, no abdominal pain or vomiting; (+) nausea only. Mildly elevated LFTs; amylase and lipase - negative. D/W patient the followin) IVFs: D5 NS with pyridoxine 50 mg, latter once every 24 hours 2) Follow up GI and General Surgery consults 3) Strict NPO for the first 12 - 24 hours; limit visitors to only and minimize external stimuli (e.g., dark room, no TV or cell phone use). D/W patient , and , who are in agreement. 4) Repeat CBC, comp metabolic panel, U/A, thyroid panel 5) Anti-nausea and anti-emetic, PRN 6) SCD - Patient expressed an understanding and agrees. Her questions were answered to the best of my ability Dr. Trujillo responded to consult request. He recommends the followin) repeat abdominal ultrasound, measuring CBD. If progressing, ERCP may be indicated 2) Follow trend of transaminases 3) Add pepcid - Thank you. Plan: 1) Admit 2) As above. - Date & Time Date: 11/09/18 Time: 23:00
[2018-11-10 01:34] LABS: SQUAMOUS EPITHIAL 1 /hpf (0-5); URINE BILIRUBIN NEGATIVE (NEGATIVE); URINE BLOOD NEGATIVE (NEGATIVE); URINE CLARITY Clear (Clear); URINE COLOR Yellow (YELLOW); URINE GLUCOSE (UA) 1+ mg/dL (Normal); URINE LEUKOCYTE ESTERASE TRACE Leu/uL (Negative); URINE PROTEIN NEGATIVE (NEGATIVE); URINE UROBILINOGEN NORMAL mg/dL (0.2-1.0)
[2018-11-10] MEDS: Dextrose 5%/0.9% NS 1,000 ML IV SCH ×2 (05:26→14:16)
[2018-11-10] MEDS: Pyridoxine HCl 50 MG in Dextrose 5%/0.9% NS 1,000 ML IV SCH ×2 (05:28→19:33)
--- NOTE | 2018-11-10 07:52 | CP.PCM.CON ---
History of Present Illness - History of Present Illness History of Present Illness: This is a 27 year old woman LMP 09/05/2017 with recurrent nausea, vomiting, abdominal pain. Patient was admitted two weeks ago with a ten-day history of nausea, vomiting, and intermittent abdominal pain, along with a 9 pound weight loss over the preceding two weeks. Evaluation showed normal LFTs, and sonogram of the abdomen 10/28/28 showed cholelithiasis and sludge in the GB and a dilated common duct measuring 9 mm. The pelvic ultrasound showed a live intrauterine gestation approximately 5 weeks 5 days. MRCP showed cholelithiasis and CBD measuring 6 mm. She improved symptomatically and was discharged on the third hospital day. She initially did well at home, but pain recurred last weekend and continued daily during the early part of the week. Pain was again accompanied by nausea and vomiting, weakness, and dizziness. She denies having difficulty swallowing or heartburn. She has not had a bowel movement in the past four days. She denies having rectal bleeding. She has lost a total of 11 pounds in the past four weeks. Evaluation in the ER showed new elevations of the transaminases: AST 78 (was 20 on 10/30/17), ALT 96 (15) ALKP 52 (51), TBILI 1.1 (1.0). Review of Systems - Constitutional Constitutional: Weakness. absent: Chills, Fever - Cardiovascular Cardiovascular: Palpitations - Gastrointestinal Gastrointestinal: Abdominal Pain, Constipation, Nausea, Vomiting. absent: Dysphagia, Heartburn - Genitourinary Genitourinary: absent: Dysuria, Hematuria - Neurological Neurological: absent: Headaches Past Patient History - Infectious Disease Hx of Infectious Diseases: None - Past Medical History & Family History Past Medical History?: Yes - Past Social History Smoking Status: Never Smoked Chewing Tobacco Use: No Cigar Use: No Alcohol: None Drugs: Denies Home Situation {Lives}: With Family - CARDIAC Hx Cardiac Disorders: No - PULMONARY Hx Respiratory Disorders: No - NEUROLOGICAL Hx Neurological Disorder: No - HEENT Hx HEENT Problems: No - RENAL Hx Chronic Kidney Disease: No - ENDOCRINE/METABOLIC Hx Endocrine Disorders: No - HEMATOLOGICAL/ONCOLOGICAL Hx Blood Disorders: No - INTEGUMENTARY Hx Dermatological Problems: No - MUSCULOSKELETAL/RHEUMATOLOGICAL Hx Falls: No - GASTROINTESTINAL Hx Gall Bladder Disease: Yes - GENITOURINARY/GYNECOLOGICAL Hx Genitourinary Disorders: No LMP:: 09/05/18 : 1 Para: 0 Termination of : 0 - PSYCHIATRIC Hx Psychophysiologic Disorder: No Hx Substance Use: No - SURGICAL HISTORY Hx Surgeries: No - ANESTHESIA Hx Anesthesia: No Meds Allergies/Adverse Reactions: Allergies Allergy/AdvReac Type Severity Reaction Status Date / Time No Known Allergies Allergy Verified 11/09/18 15:51 - Medications Medications: Current Medications Acetaminophen (Tylenol 325 Mg Supp) 975 mg NC Q6 PRN PRN Reason: Pain, moderate (4-7) Famotidine (Pepcid) 20 mg IVP Q12H [facility] Last Admin: 11/10/18 06:30 Dose: 20 mg Pyridoxine HCl 50 mg/ Dextrose (/Sodium Chloride) 1,000.5 mls @ 125 mls/hr IV Q24H [facility] Last Admin: 11/10/18 05:28 Dose: 125 mls/hr Dextrose/Sodium Chloride (Dextrose 5%/0.9% Ns 1000 Ml) 1,000 mls @ 125 mls/hr IV .Q8H [facility] Last Admin: 11/10/18 05:26 Dose: 125 mls/hr Metoclopramide HCl (Reglan) 10 mg IVP Q8 PRN PRN Reason: Nausea/Vomiting Ondansetron HCl (Zofran Inj) 4 mg IVP Q8 PRN PRN Reason: Nausea/Vomiting Physical Exam - Constitutional Appears: No Acute Distress - Head Exam Head Exam: ATRAUMATIC, NORMOCEPHALIC - Eye Exam Eye Exam: EOMI, PERRL - Neck Exam Neck exam: Negative for: Lymphadenopathy, Thyromegaly - Respiratory Exam Respiratory Exam: NORMAL BREATHING PATTERN. absent: Rales, Rhonchi, Wheezes - Cardiovascular Exam Cardiovascular Exam: REGULAR RHYTHM, +S1, +S2. absent: Gallop, Rubs, Systolic Murmur - GI/Abdominal Exam GI & Abdominal Exam: Normal Bowel Sounds, Soft. absent: Mass, Organomegaly, Tenderness - Rectal Exam Rectal Exam: Deferred - Extremities Exam Extremities exam: Negative for: calf tenderness, pedal edema Results - Vital Signs Recent Vital Signs: Last Vital Signs Temp 98.6 F 11/10/18 00:17 Pulse 80 11/10/18 00:17 Resp 20 11/10/18 00:17 BP 91/54 L 11/10/18 00:17 Pulse Ox 99 11/10/18 00:17 - Labs Result Diagrams: 11/09/18 16:32 11/09/18 16:32 Labs: Laboratory Results - last 24 hr 11/09/18 11/09/18 11/09/18 16:32 16:32 19:27 WBC 13.0 H RBC 4.73 Hgb 14.3 Hct 43.6 MCV 92.1 D MCH 30.2 MCHC 32.8 L RDW 12.8 Plt Count 222 MPV 10.6 Neut % (Auto) 62.0 Lymph % (Auto) 25.2 [place] % (Auto) 7.3 Eos % (Auto) 5.2 H Baso % (Auto) 0.3 Neut # (Auto) 8.1 H Lymph # (Auto) 3.3 [place] # (Auto) 1.0 H Eos # (Auto) 0.7 Baso # (Auto) 0.0 Sodium 133 Potassium 4.2 Chloride 101 Carbon Dioxide 22 Anion Gap 14 BUN 4 L Creatinine 0.4 L Est GFR ( Amer) > 60 Est GFR (Non-Af Amer) > 60 Random Glucose 82 D Calcium 9.4 Total Bilirubin 1.1 AST 78 H D ALT 96 H D Alkaline Phosphatase 52 Total Protein 6.9 Albumin 4.3 Globulin 2.6 Albumin/Globulin Ratio 1.7 Amylase 64 Lipase 68 Beta HCG, Quant 491825.00 Urine Color Urine Clarity Urine pH Ur Specific [place] Urine Protein Urine Glucose (UA) Urine Ketones Urine Blood Urine Nitrate Urine Bilirubin Urine Urobilinogen Ur Leukocyte Esterase Urine WBC (Auto) Urine RBC (Auto) Ur Squamous Epith Cells B-Hydroxybutyrate 0.65 H 11/10/18 01:24 WBC RBC Hgb Hct MCV MCH MCHC RDW Plt Count MPV Neut % (Auto) Lymph % (Auto) [place] % (Auto) Eos % (Auto) Baso % (Auto) Neut # (Auto) Lymph # (Auto) [place] # (Auto) Eos # (Auto) Baso # (Auto) Sodium Potassium Chloride Carbon Dioxide Anion Gap BUN Creatinine Est GFR ( Amer) Est GFR (Non-Af Amer) Random Glucose Calcium Total Bilirubin AST ALT Alkaline Phosphatase Total Protein Albumin Globulin Albumin/Globulin Ratio Amylase Lipase Beta HCG, Quant Urine Color Yellow Urine Clarity Clear Urine pH 7.0 Ur Specific [place] 1.008 Urine Protein Negative Urine Glucose (UA) 1+ Urine Ketones Negative Urine Blood Negative Urine Nitrate Negative Urine Bilirubin Negative Urine Urobilinogen Normal Ur Leukocyte Esterase Trace Urine WBC (Auto) 2 Urine RBC (Auto) < 1 Ur Squamous Epith Cells 1 B-Hydroxybutyrate Assessment & Plan (1) Cholelithiasis affecting in first trimester, antepartum Assessment and Plan: Patient has documented gallstones, now with slight elevations of transaminases, possibly due to CBD stone or medication toxicity (Zofran?). Will request surgical consultation and repeat sonogram. If ERCP is needed, will consult Dr. Mars. Consider transfer to high-risk OB center. Status: Acute
--- NOTE | 2018-11-10 07:52 | CP.PCM.CON ---
History of Present Illness - History of Present Illness History of Present Illness: General Surgery consult note for Dr. Randolph Consulted for gallstones and dilated CBD (9mm) Patient is a 27 yr old female with no PMH who is currently 8 weeks presenting with vomiting and incidental finding of cholelithiasis and 9mm CBD on recent US during previous admission. Patient was previously admitted to [facility] 2/2 intractable vomiting and prescribed several medications for nausea control. Patient indicates that she has lost approximately 5kg over the last 8 weeks and has had extreme difficulty maintaining any PO intake without emesis. She denies abdominal pain at this time and states that she has only muscle soreness from the repetitive vomiting. She indicates that she had stopped taking all of her previously prescribed medicatipons for nausea control several days prior to presenting to the ED. She otherwise denies SIMMS, SOB, CP, f/c, abdominal pain, stool changes, dysuria, vaginal bleeding or discharge and extremity pain/weakness. PMH: denies PSH: denies NKDA Meds: at home: zofran, reglan, tylenol, PNV Soc Hx: denies tobacco, illicit drug or EtOH use. 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 Father alive 48 -?HTN Review of Systems - Review of Systems All systems: reviewed and no additional remarkable complaints except (as per HPI) Past Patient History - Infectious Disease Hx of Infectious Diseases: None - Past Medical History & Family History Past Medical History?: Yes - Past Social History Smoking Status: Never Smoked Chewing Tobacco Use: No Cigar Use: No Alcohol: None Drugs: Denies Home Situation {Lives}: With Family - CARDIAC Hx Cardiac Disorders: No - PULMONARY Hx Respiratory Disorders: No - NEUROLOGICAL Hx Neurological Disorder: No - HEENT Hx HEENT Problems: No - RENAL Hx Chronic Kidney Disease: No - ENDOCRINE/METABOLIC Hx Endocrine Disorders: No - HEMATOLOGICAL/ONCOLOGICAL Hx Blood Disorders: No - INTEGUMENTARY Hx Dermatological Problems: No - MUSCULOSKELETAL/RHEUMATOLOGICAL Hx Falls: No - GASTROINTESTINAL Hx Gall Bladder Disease: Yes - GENITOURINARY/GYNECOLOGICAL Hx Genitourinary Disorders: No LMP:: 09/05/18 : 1 Para: 0 Termination of : 0 - PSYCHIATRIC Hx Psychophysiologic Disorder: No Hx Substance Use: No - SURGICAL HISTORY Hx Surgeries: No - ANESTHESIA Hx Anesthesia: No Meds Allergies/Adverse Reactions: Allergies Allergy/AdvReac Type Severity Reaction Status Date / Time No Known Allergies Allergy Verified 11/09/18 15:51 - Medications Medications: Current Medications Acetaminophen (Tylenol 325 Mg Supp) 975 mg DE Q6 PRN PRN Reason: Pain, moderate (4-7) Famotidine (Pepcid) 20 mg IVP Q12H [facility] Last Admin: 11/10/18 06:30 Dose: 20 mg Pyridoxine HCl 50 mg/ Dextrose (/Sodium Chloride) 1,000.5 mls @ 125 mls/hr IV Q24H [facility] Last Admin: 11/10/18 05:28 Dose: 125 mls/hr Dextrose/Sodium Chloride (Dextrose 5%/0.9% Ns 1000 Ml) 1,000 mls @ 125 mls/hr IV .Q8H [facility] Last Admin: 11/10/18 05:26 Dose: 125 mls/hr Metoclopramide HCl (Reglan) 10 mg IVP Q8 PRN PRN Reason: Nausea/Vomiting Ondansetron HCl (Zofran Inj) 4 mg IVP Q8 PRN PRN Reason: Nausea/Vomiting Physical Exam - Constitutional Appears: Well, Non-toxic, No Acute Distress, Cachectic - Head Exam Head Exam: ATRAUMATIC, NORMOCEPHALIC - Eye Exam Eye Exam: EOMI - ENT Exam ENT Exam: Mucous Membranes Dry - Respiratory Exam Respiratory Exam: NORMAL BREATHING PATTERN - Cardiovascular Exam Cardiovascular Exam: REGULAR RHYTHM - GI/Abdominal Exam GI & Abdominal Exam: Soft, Tenderness. absent: Distended, Guarding - Extremities Exam Extremities exam: Negative for: calf tenderness, pedal edema - Neurological Exam Neurological exam: Alert, Oriented x3 - Psychiatric Exam Psychiatric exam: Normal Affect, Normal Mood - Skin Skin Exam: Dry, Intact, Normal Color, Warm Results - Vital Signs Recent Vital Signs: Last Vital Signs Temp 98.6 F 11/10/18 00:17 Pulse 80 11/10/18 00:17 Resp 20 11/10/18 00:17 BP 91/54 L 11/10/18 00:17 Pulse Ox 99 11/10/18 00:17 - Labs Result Diagrams: 11/09/18 16:32 11/09/18 16:32 Labs: Laboratory Results - last 24 hr 11/09/18 11/09/18 11/09/18 16:32 16:32 19:27 WBC 13.0 H RBC 4.73 Hgb 14.3 Hct 43.6 MCV 92.1 D MCH 30.2 MCHC 32.8 L RDW 12.8 Plt Count 222 MPV 10.6 Neut % (Auto) 62.0 Lymph % (Auto) 25.2 [place] % (Auto) 7.3 Eos % (Auto) 5.2 H Baso % (Auto) 0.3 Neut # (Auto) 8.1 H Lymph # (Auto) 3.3 [place] # (Auto) 1.0 H Eos # (Auto) 0.7 Baso # (Auto) 0.0 Sodium 133 Potassium 4.2 Chloride 101 Carbon Dioxide 22 Anion Gap 14 BUN 4 L Creatinine 0.4 L Est GFR ( Amer) > 60 Est GFR (Non-Af Amer) > 60 Random Glucose 82 D Calcium 9.4 Total Bilirubin 1.1 AST 78 H D ALT 96 H D Alkaline Phosphatase 52 Total Protein 6.9 Albumin 4.3 Globulin 2.6 Albumin/Globulin Ratio 1.7 Amylase 64 Lipase 68 Beta HCG, Quant 462062.00 Urine Color Urine Clarity Urine pH Ur Specific [place] Urine Protein Urine Glucose (UA) Urine Ketones Urine Blood Urine Nitrate Urine Bilirubin Urine Urobilinogen Ur Leukocyte Esterase Urine WBC (Auto) Urine RBC (Auto) Ur Squamous Epith Cells B-Hydroxybutyrate 0.65 H 11/10/18 01:24 WBC RBC Hgb Hct MCV MCH MCHC RDW Plt Count MPV Neut % (Auto) Lymph % (Auto) [place] % (Auto) Eos % (Auto) Baso % (Auto) Neut # (Auto) Lymph # (Auto) [place] # (Auto) Eos # (Auto) Baso # (Auto) Sodium Potassium Chloride Carbon Dioxide Anion Gap BUN Creatinine Est GFR ( Amer) Est GFR (Non-Af Amer) Random Glucose Calcium Total Bilirubin AST ALT Alkaline Phosphatase Total Protein Albumin Globulin Albumin/Globulin Ratio Amylase Lipase Beta HCG, Quant Urine Color Yellow Urine Clarity Clear Urine pH 7.0 Ur Specific [place] 1.008 Urine Protein Negative Urine Glucose (UA) 1+ Urine Ketones Negative Urine Blood Negative Urine Nitrate Negative Urine Bilirubin Negative Urine Urobilinogen Normal Ur Leukocyte Esterase Trace Urine WBC (Auto) 2 Urine RBC (Auto) < 1 Ur Squamous Epith Cells 1 B-Hydroxybutyrate Assessment & Plan - Assessment and Plan (Free Text) Assessment: 27 yr old female in her 1st trimester experiencing intractable vomiting, incidental gallstones and 9mm CBD on imaging, no abdominal complaints Plan: - continue IVF - continue antiemetics - f/u US results - pt assymptomatic at this time, no further surgical intervention - discussed with Dr. Randolph, further recs per her Yoon Benitez, PGY 1 - Date & Time Date: 11/10/18 Time: 07:15
--- NOTE | 2018-11-10 09:15 | US ---
Date of service: 11/10/2018 HISTORY: Abd pain, gallstones, check size of Comm Bile duct COMPARISON: MRCP from 10/30/2018. TECHNIQUE: Sonographic evaluation of the right upper quadrant of the abdomen. FINDINGS: LIVER: Measures 11.4 cm in length. There is diffuse increased echogenicity of the liver parenchyma with coarse echotexture. No mass. No intrahepatic bile duct dilatation. GALLBLADDER: There are multiple gallstones. No wall thickening or pericholecystic fluid. The sonographic Bueno's sign is negative. There is layering sludge in the gallbladder. COMMON BILE DUCT: Measures 5.6 mm. No stones. Mild diffuse dilatation. PANCREAS: Unremarkable as visualized. No mass. No ductal dilatation. RIGHT KIDNEY: Measures 9.3 cm in length. Normal echogenicity. No calculus, mass, or hydronephrosis. AORTA: No aneurysmal dilatation. IVC: Unremarkable. OTHER FINDINGS: None . IMPRESSION: Cholelithiasis. Mild diffuse dilatation of the common bile duct without evidence for choledocholithiasis. Correlation with MRCP may be performed to evaluate for distal stone if clinically indicated. Fatty liver.
[2018-11-10 09:24] LABS: BASO % 0.4 % (0.0-2.0); EOS # 0.5 K/uL (0.0-0.7); EOS % 6.1 % (0.0-4.0); HEMOGLOBIN 12.9 g/dL (11.0-16.0); LYMPH # 1.6 K/uL (1.0-4.3); LYMPH % 19.8 % (20.0-40.0); MEAN CELL VOLUME 90.8 fL (81.0-99.0); MEAN CORPUSCULAR HEMOGLOBIN 30.7 pg (27.0-31.0); MEAN CORPUSCULAR HGB CONC 33.8 g/dL (33.0-37.0); MEAN PLATELET VOLUME 10.5 fL (7.2-11.7); MONO # 0.6 K/uL (0.0-0.8); NEUT # 5.4 K/uL (1.8-7.0); NEUT % 66.7 % (50.0-75.0); NRBC % 0.1 % (0.0-2.0); RBC 4.2 Mil/uL (3.80-5.20); RED CELL DISTRIBUTION WIDTH 13.2 % (11.5-14.5); WHITE BLOOD COUNT 8.1 K/uL (4.8-10.8)
[2018-11-10 09:53] LABS: ALB/GLOB RATIO 1.6 (1.0-2.1); ALBUMIN 3.7 g/dL (3.5-5.0); ALT/SGPT 71 U/L (9-52); AST/SGOT 37 U/L (14-36); BLOOD UREA NITROGEN 2 mg/dL (7-17); CALCIUM 8.9 mg/dl (8.6-10.4); GFR NON-AFRICAN AMERICAN > 60
[2018-11-10 09:59] LABS: FREE T4 1.38 ng/dL (0.78-2.19)
--- NOTE | 2018-11-10 13:01 | CP.PCM.PN ---
Subjective - Date & Time of Evaluation Date of Evaluation: 11/10/18 Time of Evaluation: 10:30 - Subjective Subjective: 27yo at 8.6 weeks RODOLFO:06/13/19 LMP: 06/13/19 presented to ED with intractable nausea/vomiting. Pt reports no vomiting overnight and has improvement in nausea. Denies chest pain, SOB. Denies abdominal pain. Denies vaginal bleeding and cramping. Objective - Vital Signs/Intake and Output Vital Signs (last 24 hours): Temp Pulse Resp BP Pulse Ox 97.3 F L 76 18 86/56 L 100 11/10/18 09:59 11/10/18 09:59 11/10/18 09:59 11/10/18 09:59 11/10/18 09:59 - Medications Medications: Current Medications Acetaminophen (Tylenol 325 Mg Supp) 975 mg CA Q6 PRN PRN Reason: Pain, moderate (4-7) Famotidine (Pepcid) 20 mg IVP Q12H [facility] Last Admin: 11/10/18 06:30 Dose: 20 mg Pyridoxine HCl 50 mg/ Dextrose (/Sodium Chloride) 1,000.5 mls @ 125 mls/hr IV Q24H [facility] Last Admin: 11/10/18 05:28 Dose: 125 mls/hr Dextrose/Sodium Chloride (Dextrose 5%/0.9% Ns 1000 Ml) 1,000 mls @ 125 mls/hr IV .Q8H [facility] Last Admin: 11/10/18 05:26 Dose: 125 mls/hr Metoclopramide HCl (Reglan) 10 mg IVP Q8 PRN PRN Reason: Nausea/Vomiting Promethazine HCl (Phenergan Rectal Supp) 12.5 mg CA Q6 PRN PRN Reason: Nausea/Vomiting - Labs Labs: 11/10/18 09:18 11/10/18 09:18 - Constitutional Appears: Well, Non-toxic, No Acute Distress - GI/Abdominal Exam Additional comments: (+) tenderness in RUQ to deep palpation Assessment and Plan - Assessment and Plan (Free Text) Assessment: 27yo at 8.6 weeks - Intractable nausea/vomiting 1) VSS 2) repeat labs to trend transaminases 3) GI/General Surgery consultation/recs appreciated 4) no obstetrical complaints currently 5) RUQ ultrasound pending 6) Continue to monitor closely
[2018-11-10 21:13] VITALS: RESP 18
[2018-11-11] MEDS: Dextrose 5%/0.9% NS 1,000 ML IV SCH (05:16)
[2018-11-11 09:35] VITALS: O2SAT 100
[2018-11-11] MEDS ORDERED: Multivitamin (MVI) 10 ML, Thiamine 100 MG, Folic Acid 1 MG in Sodium Chloride 0.9% 1,00... IV ONE (20:40)
--- NOTE | 2018-11-11 21:56 | CP.PCM.PN ---
Subjective - Date & Time of Evaluation Date of Evaluation: 11/11/18 Time of Evaluation: 07:00 - Subjective Subjective: 27G1P) @ 9w3d admitted for intractible nausea and vomiting. Pt was recently admitted on 10/27 - 10/28 for complaints nausea and vomiting. She was diagnosed with cholelithiasis with CBD dilation of 9mm. PT was sent home on PO anti- emetics but pt stopped taking them on 11/07. She presented to the ER on 11/07 with the same complaints. Pt had recent abdominal US that showed CBD has improved 9mm ->5mm. Pt was seen by GI and surgery who did not recommend surgical intervention at this time. Pts recent electroyltes are normal and liver enzymes have improved since admission. Today pt still has complaints of nausea and vomited once. She is currently of compazine and reglan. PT was given IV bag of multivitamin. Objective - Vital Signs/Intake and Output Vital Signs (last 24 hours): Temp Pulse Resp BP Pulse Ox 98.3 F 83 18 85/63 L 100 11/11/18 16:15 11/11/18 16:15 11/11/18 16:15 11/11/18 16:15 11/11/18 16:15 Intake and Output: 11/11/18 11/12/18 18:59 06:59 Intake Total 1860 Balance 1860 - Medications Medications: Current Medications Acetaminophen (Tylenol 325 Mg Supp) 975 mg MD Q6 PRN PRN Reason: Pain, moderate (4-7) Famotidine (Pepcid) 20 mg IVP Q12H [facility] Last Admin: 11/11/18 17:38 Dose: 20 mg Pyridoxine HCl 50 mg/ Dextrose (/Sodium Chloride) 1,000.5 mls @ 125 mls/hr IV Q24H [facility] Last Admin: 11/10/18 19:33 Dose: 125 mls/hr Dextrose/Sodium Chloride (Dextrose 5%/0.9% Ns 1000 Ml) 1,000 mls @ 125 mls/hr IV .Q8H [facility] Last Admin: 11/11/18 05:16 Dose: 125 mls/hr Metoclopramide HCl (Reglan) 10 mg IVP Q8 PRN PRN Reason: Nausea/Vomiting Last Admin: 11/11/18 20:26 Dose: 10 mg Prochlorperazine (Compazine Rectal Supp) 25 mg MD BID [facility] - Labs Labs: 11/10/18 09:18 11/10/18 09:18 - Constitutional Appears: In Acute Distress - Head Exam Head Exam: absent: ATRAUMATIC, NORMAL INSPECTION, NORMOCEPHALIC - Eye Exam Eye Exam: absent: Conjunctival injection, EOMI, Normal appearance, Nystagmus, Periorbital swelling, Periorbital tenderness, PERRL, Scleral icterus - ENT Exam ENT Exam: absent: Mucous Membranes Dry, Mucous Membranes Moist, Normal Exam, Normal External Ear Exam, Normal Oropharynx, TM's Normal Bilaterally - Neck Exam Neck Exam: absent: Full ROM, Lymphadenopathy, Meningismus, Normal Inspection, Tenderness, Thyromegaly - Respiratory Exam Respiratory Exam: absent: Accessory Muscle Use, Chest Wall Tenderness, Decreased Breath Sounds, Clear to Ausculation Bilateral, Prolonged Expiratory Phase, Ra les, Rhonchi, Wheezes, Respiratory Distress, Stridor, NORMAL BREATHING PATTERN - Cardiovascular Exam Cardiovascular Exam: absent: Bradycardia, Tachycardia, Clicks, Diastolic murmur, Gallop, Irregular Rhythm, REGULAR RHYTHM, JVD, RRR, Rubs, +S1, +S2, +S4, Murmur - Extremities Exam Extremities Exam: absent: Calf Tenderness, Full ROM, Joint Swelling, Normal Capillary Refill, Normal Inspection, Pedal Edema, Tenderness - Psychiatric Exam Psychiatric exam: absent: Agitated, Anxious, Depressed, Flat Affect, Homicidal Ideation, Manic, Normal Affect, Normal Mood, Suicidal Ideation Assessment and Plan - Assessment and Plan (Free Text) Assessment: 26 @ 9w3d with nausea and vomiting of . 1) VSS: Afebrile 2) Labs show dehydration, will switch to IV LR with MVI and thiamine for now. 3) Nausea and vomitng ; Electroyles: WNL Repeat cmp in the am. continue reglan and compazine 4) Cholelithiais: abdominal US shows improvement: CBD 9mm -> 5.6mm. - no recommended surgery at this time Per surger/GI 5) Advance diet to bland in the am. 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
[2018-11-12] MEDS: Dextrose 5%/0.9% NS 1,000 ML IV SCH (07:30)
[2018-11-12 08:41] LABS: ALB/GLOB RATIO 1.3 (1.0-2.1); ALT/SGPT 200 U/L (9-52); AST/SGOT 93 U/L (14-36); BLOOD UREA NITROGEN 2 mg/dL (7-17); CALCIUM 8.7 mg/dl (8.6-10.4); GFR NON-AFRICAN AMERICAN > 60
[2018-11-12 09:15] VITALS: BP 101/64; PULSE 96; TEMP 97.1
--- NOTE | 2018-11-12 09:15 | CP.PCM.PN ---
Subjective - Date & Time of Evaluation Date of Evaluation: 11/12/18 Time of Evaluation: 09:12 - Subjective Subjective: 27 yo IUP at 8+ weeks with hyperemesis gravidarum. Pt denies N/V this morning after breakfast s/p rectal compazine Objective - Vital Signs/Intake and Output Vital Signs (last 24 hours): Temp Pulse Resp BP Pulse Ox 98.3 F 83 18 85/63 L 100 11/11/18 16:15 11/11/18 16:15 11/11/18 16:15 11/11/18 16:15 11/11/18 16:15 - Medications Medications: Current Medications Acetaminophen (Tylenol 325 Mg Supp) 975 mg ID Q6 PRN PRN Reason: Pain, moderate (4-7) Famotidine (Pepcid) 20 mg IVP Q12H [facility] Last Admin: 11/12/18 06:31 Dose: 20 mg Pyridoxine HCl 50 mg/ Dextrose (/Sodium Chloride) 1,000.5 mls @ 125 mls/hr IV Q24H [facility] Last Admin: 11/10/18 19:33 Dose: 125 mls/hr Dextrose/Sodium Chloride (Dextrose 5%/0.9% Ns 1000 Ml) 1,000 mls @ 125 mls/hr IV .Q8H [facility] Last Admin: 11/12/18 07:30 Dose: 125 mls/hr Metoclopramide HCl (Reglan) 10 mg IVP Q8 PRN PRN Reason: Nausea/Vomiting Last Admin: 11/11/18 20:26 Dose: 10 mg Prochlorperazine (Compazine Rectal Supp) 25 mg ID BID [facility] Last Admin: 11/11/18 23:02 Dose: 25 mg - Labs Labs: 11/10/18 09:18 11/12/18 08:15 Assessment and Plan - Assessment and Plan (Free Text) Plan: A/P: 27 yo IUP at 8+ weeks with hyperemesis gravidarum - stable, afebrile - N/V - tolerated diet this AM, given rectal compazine - encourage BRAT diet, constant hydration - start Diglegis in afternoon - f/u with OB this week - d/c home
== END 2018-11-12 09:40 | disposition home or self-care (01) | DRG 832 ==
LOC: C.ER 15:41 → C.4M 18:14 → OBSVTOIN 18:14
PROVIDERS: ADMIT Obstetrics & Gynecology; ATTEND Obstetrics & Gynecology
DX: O21.0 Mild hyperemesis gravidarum (principal); O26.611 Liver and biliary tract disorders in pregnancy, first trimester; O26.11 Low weight gain in pregnancy, first trimester; Z3A.08 8 weeks gestation of pregnancy